=== PATIENT | female | born 1965 | race Caucasian/White ===

== ENCOUNTER → 2019-03-23 12:57 | Outpatient (BNVA) | payer OTHER, SELFPAY | PROVIDERS: Family Provider Family Medicine; PCP Family Medicine; Referring Provider Family Medicine; Visit Provider Internal Medicine Rheumatology | DX: M19.90 Unspecified osteoarthritis, unspecified site (principal); Z79.899 Other long term (current) drug therapy; Z11.1 Encounter for screening for respiratory tuberculosis; Z11.59 Encounter for screening for other viral diseases; M77.9 Enthesopathy, unspecified; M25.541 Pain in joints of right hand; M25.542 Pain in joints of left hand; L60.8 Other nail disorders | CPT/HCPCS: 36415; 86480; 86812; 99204 ==

== ENCOUNTER → 2019-03-23 14:17 | Outpatient (BNVA) | payer OTHER, SELFPAY | PROVIDERS: Family Provider Family Medicine; PCP Family Medicine; Referring Provider Family Medicine; Visit Provider Internal Medicine Rheumatology | DX: M19.90 Unspecified osteoarthritis, unspecified site (principal); Z79.899 Other long term (current) drug therapy; Z11.59 Encounter for screening for other viral diseases; M77.9 Enthesopathy, unspecified; M25.541 Pain in joints of right hand; M25.542 Pain in joints of left hand; L60.8 Other nail disorders; Z71.89 Other specified counseling | CPT/HCPCS: 85025 ==

== ENCOUNTER 2019-03-23 14:52 | Outpatient (CLI) | payer OTHER, SELFPAY ==
--- NOTE | 2019-03-23 15:11 | XR_ITS ---
WS: [id number] FOOT RIGHT TECHNIQUE: 3 views of the right foot CLINICAL INFORMATION: inflammatory arthritis COMPARISON: None. FINDINGS: No evidence of acute fracture or dislocation. Normal tarsal metatarsal alignment. Normal calcaneus. N ormal visualized talar dome. Plantar calcaneal spurring. Small Achilles enthesophyte. XR/XR foot RT min 3V* [id number] IMPRESSION: Plantar calcaneal spurring. Small Achilles enthesophyte.
--- NOTE | 2019-03-23 15:11 | XR_ITS ---
WS: [id number] HAND LEFT TECHNIQUE: 3 views of the left hand CLINICAL INFORMATION: inflammatory arthritis COMPARISON: None. FINDINGS: Normal metacarpals. Normal MCP joint. Metacarpal heads are normal in appearance. Mild narrowing third DIP joint. No evidence of acute fracture or dislocation. Radiocarpal joint: Normal. Carpal bones: Normal. XR/XR hand LT min 3V* [id number] IMPRESSION: Mild narrowing third DIP joint
--- NOTE | 2019-03-23 15:11 | XR_ITS ---
WS: [id number] PROCEDURE: XR chest 2V* [id number] CLINICAL INFORMATION: inflammatory arthritis COMPARISON: None. FINDINGS: Heart: Normal cardiac silhouette. Lungs: Lungs are clear. No consolidation or pleural fluid. Bones: Normal visualized bony structures. XR/XR chest 2V* [id number] IMPRESSION: Normal chest
--- NOTE | 2019-03-23 15:11 | XR_ITS ---
WS: [id number] FOOT LEFT TECHNIQUE: 3 views of the left foot CLINICAL INFORMATION: inflammatory arthritis COMPARISON: None. FINDINGS: No evidence of acute fracture or dislocation. Normal tarsal metatarsal alignment. Normal calcaneus. N ormal visualized talar dome. Plantar calcaneal spurring. Tiny amount of spurring at the Achilles inse rtion. XR/XR foot LT min 3V* [id number] IMPRESSION: Plantar calcaneal spurring. Remainder unremarkable.
--- NOTE | 2019-03-23 15:11 | XR_ITS ---
WS: [id number] KNEE LEFT TECHNIQUE: 3 views of the left knee CLINICAL INFORMATION: inflammatory arthritis COMPARISON: None. FINDINGS: Mild to moderate degenerative arthritis with medial and lateral joint space narrowing. Chondrocalcino sis. Hypertrophic changes along the joint line. No evidence of acute fracture dislocation. Hypertroph ic patella. Advanced degenerative narrowing at the patellofemoral articulation. XR/XR knee LT 3V* [id number] IMPRESSION: 1. Mild to moderate medial greater than lateral compartment narrowing with cho ndrocalcinosis. 2. Hypertrophic patella with advanced degenerative narrowing at the patellofem oral articulation.
--- NOTE | 2019-03-23 15:11 | XR_ITS ---
WS: [id number] PELVIS TECHNIQUE: 1 view(s) of the pelvis CLINICAL INFORMATION: inflammatory arthritis COMPARISON: None. FINDINGS: Visualized hips are normal in appearance. Mild degenerative arthritis both hips. Benign-appearing scl erosis right femoral neck and greater trochanter. Normal acetabulum. Mild spondylitic changes lower l umbar spine. Inferior and superior pubic rami are normal. Degenerative arthritis at the pubic symphys is. Normal iliopectineal line. Sacrum is normal in appearance. XR/XR pelvis 1-2V* [id number] IMPRESSION: 1. Mild spondylitic changes lower lumbar spine and mild degenerative arthritis at the pubic symphysis. 2. Mild degenerative arthritis both hips with joint space narrowing. Benign-ap pearing sclerosis right femoral neck and greater trochanter.
--- NOTE | 2019-03-23 15:11 | XR_ITS ---
WS: [id number] HAND RIGHT TECHNIQUE: 3 views of the right hand CLINICAL INFORMATION: inflammatory arthritis COMPARISON: None. FINDINGS: Normal metacarpals. Normal MCP joint. Metacarpal heads are normal in appearance. Mild third DIP joint narrowing. No evidence of acute fracture or dislocation. Radiocarpal joint: Normal. Carpal bones: Normal. XR/XR hand RT min 3V* [id number] IMPRESSION: Mild third DIP joint narrowing
== END 2019-03-23 14:53 | disposition home or self-care (01) ==
LOC: WPI 14:59
PROVIDERS: Family Provider Family Medicine; PCP Family Medicine; Visit Provider Internal Medicine Rheumatology
DX: M16.0 Bilateral primary osteoarthritis of hip (principal); M77.32 Calcaneal spur, left foot; M77.31 Calcaneal spur, right foot
CPT/HCPCS: 71046; 72170; 73130; 73562; 73630; 80076; 82306; 82565; 84439; 85651; 86140; 86704; 86803; 87340

== ENCOUNTER → 2019-04-04 12:55 | Outpatient (BNVA) | payer OTHER, SELFPAY | PROVIDERS: Family Provider Family Medicine; PCP Family Medicine; Visit Provider Internal Medicine Rheumatology | DX: M77.9 Enthesopathy, unspecified (principal); M47.819 Spondylosis without myelopathy or radiculopathy, site unspecified; Z15.89 Genetic susceptibility to other disease; M19.90 Unspecified osteoarthritis, unspecified site; Z79.1 Long term (current) use of non-steroidal anti-inflammatories (NSAID) | CPT/HCPCS: 99204 ==

== ENCOUNTER 2019-04-18 14:56 | Outpatient (CLI) | payer OTHER, SELFPAY ==
--- NOTE | 2019-04-18 15:09 | MR_ITS ---
WS: [id number] MRI sacrum, noncontrast. HISTORY: HLA-B27 positive. Evaluate for spondyloarthropathy Multiplanar, multisequence imaging is performed through the sacrum with attention to the SI joints. COMPARISON: Pelvis radiograph 03/23/2019. No erosions or increased T2 signal on either side of the SI joints on the STIR sequence. There is no fusion across the SI joints. No erosions or edema or widening. The visualized sacrum is normal. Sacra l foramina are normal. Visualized nerve roots in the thecal sac are normally distributed. No free flu id. MR/MR sacrum wo con* [id number] IMPRESSION: Normal MRI SI joints. No evidence for spondyloarthropathy. No erosions or edema .
== END 2019-04-18 14:57 | disposition home or self-care (01) ==
PROVIDERS: Family Provider Family Medicine; PCP Family Medicine; Visit Provider Internal Medicine Rheumatology
DX: M47.819 Spondylosis without myelopathy or radiculopathy, site unspecified (principal); Z15.89 Genetic susceptibility to other disease
CPT/HCPCS: 72148

== ENCOUNTER → 2019-04-26 11:52 | Outpatient (BNVA) | payer OTHER, SELFPAY | PROVIDERS: Family Provider Family Medicine; PCP Family Medicine; Visit Provider Internal Medicine Rheumatology | DX: M06.4 Inflammatory polyarthropathy (principal); R35.0 Frequency of micturition; Z79.899 Other long term (current) drug therapy; M54.5 Low back pain; G89.29 Other chronic pain; Z79.1 Long term (current) use of non-steroidal anti-inflammatories (NSAID) | CPT/HCPCS: 81001; 99214 ==

== ENCOUNTER → 2019-05-31 09:09 | Outpatient (BNVA) | payer OTHER, SELFPAY | PROVIDERS: Family Provider Family Medicine; PCP Family Medicine; Visit Provider Internal Medicine Rheumatology | DX: M06.4 Inflammatory polyarthropathy (principal); M19.90 Unspecified osteoarthritis, unspecified site; R35.0 Frequency of micturition; Z79.899 Other long term (current) drug therapy; M54.5 Low back pain; G89.29 Other chronic pain; Z79.1 Long term (current) use of non-steroidal anti-inflammatories (NSAID) | CPT/HCPCS: 36415; 80076; 82565; 85025; 85651; 86140 ==

== ENCOUNTER → 2019-08-09 09:53 | Outpatient (BNVA) | payer OTHER, SELFPAY | PROVIDERS: Family Provider Family Medicine; PCP Family Medicine; Visit Provider Internal Medicine Rheumatology | DX: M19.90 Unspecified osteoarthritis, unspecified site (principal); M25.541 Pain in joints of right hand; M25.542 Pain in joints of left hand; Z79.899 Other long term (current) drug therapy | CPT/HCPCS: 36415; 80076; 82565; 85025; 85651; 86140 ==

== ENCOUNTER → 2019-08-18 15:45 | Outpatient (BNVA) | payer OTHER, SELFPAY | PROVIDERS: Family Provider Family Medicine; PCP Family Medicine; Visit Provider Internal Medicine Rheumatology | DX: M19.90 Unspecified osteoarthritis, unspecified site (principal); Z15.89 Genetic susceptibility to other disease; M47.819 Spondylosis without myelopathy or radiculopathy, site unspecified; M79.7 Fibromyalgia; M77.9 Enthesopathy, unspecified; Z79.1 Long term (current) use of non-steroidal anti-inflammatories (NSAID); M70.51 Other bursitis of knee, right knee; Y93.9 Activity, unspecified | CPT/HCPCS: 99214 ==

== ENCOUNTER 2019-10-03 17:29 | Outpatient (CLI) | payer OTHER, SELFPAY ==
--- NOTE | 2019-10-03 17:56 | XR_ITS ---
WS: [id number] EXAM: LEFT KNEE: 3 VIEWS DATE OF EXAMINATION: 10/03/2019, 1801 hours COMPARISON: Left knee exam from 03/23/2019. HISTORY: Patient is 54 years old with knee injury. Complaining of pain. FINDINGS: Bone density is normal in appearance. Again demonstrated are findings of advanced tricompartmental os teoarthritis. No fracture or dislocation. Minimal joint fluid in the suprapatellar pouch. Extra artic ular soft tissues are unremarkable. XR/XR knee LT 3V* [id number] IMPRESSION: Advanced tricompartmental osteoarthritis in the left knee. No acute bony abnorm ality.
== END 2019-10-03 17:30 | disposition home or self-care (01) ==
LOC: RAD 17:31
PROVIDERS: PCP Family Medicine; Visit Provider Nurse Practitioner
DX: S86.912A Strain of unspecified muscle(s) and tendon(s) at lower leg level, left leg, initial encounter (principal); M25.562 Pain in left knee; Z79.899 Other long term (current) drug therapy; X58.XXXA Exposure to other specified factors, initial encounter
CPT/HCPCS: 36415; 73562; 80076; 82565; 85025; 85651; 86140

== ENCOUNTER → 2019-11-28 08:12 | Outpatient (BNVA) | payer OTHER, SELFPAY | PROVIDERS: PCP Family Medicine; Visit Provider Internal Medicine Rheumatology | DX: Z79.899 Other long term (current) drug therapy (principal) | CPT/HCPCS: 80076; 82565; 85025; 85651; 86140 ==

== ENCOUNTER → 2019-11-29 15:20 | Outpatient (BNVA) | payer OTHER, SELFPAY | PROVIDERS: PCP Family Medicine; Visit Provider Internal Medicine Rheumatology | DX: M54.89 Other dorsalgia (principal); M47.819 Spondylosis without myelopathy or radiculopathy, site unspecified; Z79.899 Other long term (current) drug therapy; Z15.89 Genetic susceptibility to other disease; M79.7 Fibromyalgia; M06.09 Rheumatoid arthritis without rheumatoid factor, multiple sites; Z79.1 Long term (current) use of non-steroidal anti-inflammatories (NSAID); L60.8 Other nail disorders | CPT/HCPCS: 99214 ==

== ENCOUNTER 2020-03-15 09:59 | Emergency (ER) | payer OTHER, SELFPAY ==
[2020-03-15 10:02] VITALS: BP 169/97; PULSE 79; RESP 17; TEMP 36.8; O2SAT 99; BMI 38.3
--- NOTE | 2020-03-15 10:16 | XR_ITS ---
WS: [id number] Exam: XR finger RT min 2V [id number] Date/Time of Exam: 03/15/2020 10:37 AM Reason For Exam: 5th There is nondisplaced fracture at the base of the distal phalanx of the fifth finger. No other fractu res are noted. Degenerative change of the IP joints. No soft tissue foreign bodies. XR/XR finger RT min 2V [id number] IMPRESSION: 1. Nondisplaced fracture at the base of distal phalanx of the fifth finger.
--- NOTE | 2020-03-15 10:16 | CT_ITS ---
WS: [id number] CT FACIAL BONES TECHNIQUE: Noncontrast facial bones with coronal and sagittal reformatted images. CLINICAL INFORMATION: fall COMPARISON: None. DLP: 724.[address] scans at [facility] use at least one of these dose optimization techniques: automat ed exposure control; mA and/or kV adjustment per patient size (includes targeted exams where dose is matched to clinical indication); or iterative reconstruction. FINDINGS: Small soft tissue laceration overlying the right lateral orbit. Paranasal sinuses and mastoid air estefania ls are well aerated. Normal nasal bones. Normal orbits. Normal zygoma and pterygoid plates. Normal ma ndible. No acute mandibular fracture or dislocation. Normal posterior nasopharynx. CT/CT facial bones wo con* [id number] IMPRESSION: No acute facial fractures.
--- NOTE | 2020-03-15 10:16 | W.ED.HEATRA ---
HPI - Head Injury General: Chief complaint: Head Injury Stated complaint: Fall/Head injury/hand pain Time Seen by Provider: 03/15/20 10:00 History of Present Illness: HPI Narrative: 54-year-old female presents emergency room with complaint after a fall. She stumbled and fell into a brick wall she caught herself with her hands but did not hit the right supraorbital ridge laterally she was stunned but never loss conscious she has not any nausea vomiting or diarrhea she is not on any coagulants. She also hurt her right fifth finger with an abrasion on the proximal interphalangeal joint dorsally. She is able to flex and extend she denies any other injuries denies any lightheadedness dizziness or chest pain precipitating the fall. MD Complaint: head injury and fall Onset (ago): minute(s) Mechanism of Injury: fall Place: home Loss of Consciousness: no Location of injury: frontal (Right supraorbital ridge laterally) Severity: mild Quality: aching Radiation: none Other Injuries: none Associated symptoms: Deny amnesia, confusion, nausea, neck pain, numbness, syncope, tingling, vertigo, visual changes, vomiting or weakness Review of Systems Const: Denies: fever(s), chills, body aches, change in appetite, fatigue or malaise ENMT: Denies: throat pain, ear or mastoid pain, nasal discharge or nasal congestion Card: Denies: syncope Resp: Denies: dyspnea, productive cough or non-productive cough GI: Denies: nausea or vomiting : Denies: flank pain, difficulty voiding, dysuria, urinary frequency or urinary urgency Musc: Denies: neck pain Skin/Breast: Denies: rash or pruritus Neuro: Denies: vertigo or confusion PFS ED PFSH: Medical History (Updated 03/15/20 @ 11:03 by Louis Harris DO) Atypical chest pain Benign essential HTN Dyslipidemia (high LDL; low HDL) Encounter for screening for other viral diseases Enthesitis Fibromyalgia High risk medication use HLA B27 positive Hyperlipidemia Hypertension Immunization counseling Inflammatory arthritis Inflammatory back pain Joint pain Nail pitting Peripheral spondyloarthritis SOB (shortness of breath) Vitamin D deficiency Surgical History H/O rhinoplasty History of hysterectomy History of tonsillectomy Family History Son Diabetes Other CAD (coronary artery disease) Cancer Hypertension Denies family history of Rheumatoid arthritis Lupus Stroke Social History Smoking and tobacco status: never smoked Alcohol intake: never History of recent travel: No Physical Exam Const: COMMON NORMALS: no acute distress GENERAL APPEARANCE: cooperative and comfortable ORIENTATION/CONSCIOUSNESS: Yes awake, Yes oriented to person, Yes oriented to place and Yes oriented to time HENMT: COMMON NORMALS: normocephalic, hearing grossly normal bilaterally, external ears normal, EAC's normal, TM's normal bilaterally, Normal nasal mucous membranes and turbinates present, moist oral mucous membranes and oropharynx normal HEAD & SCALP: normocephalic NOSE: Normal nasal mucous membranes and turbinates present EXTERNAL EAR: Yes external ears normal EXTERNAL AUDITORY CANAL: EAC's normal TYMPANIC MEMBRANE: TM's normal bilaterally OTHER: Superficial laceration with no gaping of the lateral aspect of the supraorbital ridge no active bleeding there is an abrasion at the midportion of the eyebrows very superficial. Eye: COMMON NORMALS: Equal, round and reactive pupils present, EOMs intact bilaterally, conjunctivae normal and no scleral icterus CONJUNCTIVA: Yes conjunctivae normal PUPIL: Yes Equal, round and reactive pupils present Neck/C-Spine: COMMON NORMALS: full ROM, no lymphadenopathy, supple and no JVD OTHER: No significant distracting injuries. Patient C-spine cleared at the bedside. No pain with palpation range of motion rotation and side bending flexion extension Resp: COMMON NORMALS: normal respiratory effort, No retractions, No use of accessory muscles and clear to auscultation bilaterally AUSCULTATION: clear to auscultation bilaterally Cardio: COMMON NORMALS: no JVD, regular rate, regular rhythm and No murmurs present (Cardio) RATE: regular rate RHYTHM: regular rhythm GI: COMMON NORMALS: Soft to palpation and No hepatosplenomegaly present AUSCULTATION: Yes normoactive bowel sounds PALPATION: Yes Soft to palpation, No Tenderness to palpation present (GI), No Guarding due to palpation present (GI) and Yes No hepatosplenomegaly present Extremity: COMMON NORMALS: normal to inspection, capillary refill normal, no clubbing, cyanosis or edema, no calf tenderness and no pedal edema Neuro: SENSORIUM/ORIENTATION: Yes oriented to person, Yes oriented to place and Yes oriented to time Skin: COMMON NORMALS: no rashes or lesions noted GENERAL SKIN EXAM: no rashes or lesions noted Course Vital Signs: Vital signs: Vital Signs Temperature 98.2 F 03/15/20 10:02 Pulse Rate 70 03/15/20 12:13 Respiratory Rate 18 03/15/20 12:13 Blood Pressure 156/119 03/15/20 12:13 Pulse Oximetry 99 03/15/20 12:13 MDM - Head Injury MDM Narrative: Medical decision making narrative: No facial bone fractures. There is a small fracture at the base of the fifth finger proximal phalanx splinted. Will follow up with Ortho. Left hand shows no acute fractures. There is a small abrasion above the right eye its not amenable to suturing there is also a large very superficial abrasion in the eyebrow just apply topical antibiotic to that follow-up as needed Discharge Plan Discharge Patient Disposition: Home Clinical Impression: Finger fracture, right Qualifiers: Encounter type: initial encounter Finger: little finger Fracture type: closed Phalanx: proximal Fracture alignment: nondisplaced Qualified Code(s): S62.646A - Nondisplaced fracture of proximal phalanx of right little finger, initial encounter for closed fracture Condition: Stable Prescriptions: No Action losartan-hydrochlorothiazide 50-12.5 mg tablet 1 tab PO DAILY RF: 0 naproxen sodium 550 mg tablet 550 mg PO BID Qty: 30 RF: 0 methotrexate sodium 2.5 mg tablet 15 mg PO .week Qty: 30 RF: 3 folic acid 1 mg tablet 1 mg PO DAILY Qty: 30 RF: 3 diclofenac sodium 1 % gel 2 gm TOPICAL QID Qty: 100 RF: 2 gabapentin 300 mg capsule See Rx Instructions PO .COMPLEX Qty: 90 RF: 2 carvedilol 6.25 mg tablet 6.25 mg PO BID Qty: 180 RF: 1 sulfasalazine 500 mg tablet 0.5 g PO BID Qty: 60 RF: 3 Cosentyx Pen (2 Pens) 150 mg/mL pen injector See Rx Instructions SUBCUT .COMPLEX Qty: 4 RF: 2 pantoprazole 40 mg tablet,delayed release (DR/EC) 40 mg PO QAM 30 Days Qty: 30 RF: 2 Discharge Orders: Discharge ED (Routine); Ordered 03/15/20 Ordered By: Louis Harris Referrals: Milo Peraza, [Primary Care Provider] - Discharge Diet: Usual diet Discharge Activity: Limit activity as instructed Activity Restrictions/Additional Instructions: Wear splint until released by orthopedics do not use the right hand. Apply topical antibiotic ointment to abrasions above the right eye twice daily Coding Level of Care Code ED Career Development Facilitator for Chg Fwd Exam Comprehensive
[2020-03-15] MEDS: tetanus-dipt-pertussis 0.5 mL SDV IM (11:27)
--- NOTE | 2020-03-15 11:28 | XR_ITS ---
WS: [id number] Exam: XR hand LT min 3V* [id number] Date/Time of Exam: 03/15/2020 11:28 AM Reason For Exam: pain after fall Comparison 03/23/2019. No acute fracture or dislocation. Degenerative changes of the IP joints. Normal soft tissues. XR/XR hand LT min 3V* [id number] IMPRESSION: 1. No fracture or dislocation.
[2020-03-15] MEDS: mupirocin oint 22 gm 1 APPLIC TOPICAL (11:32)
--- NOTE | 2020-03-15 12:03 | DCPLANNER ---
business relationship manager had message to schedule a follow up appointment for patient with ortho. business relationship manager called the ortho clinic, spoke with Joyce, gave clinic patients information. business relationship manager was told that patients information would be printed and reviewed. Clinic will call patient with appointment information.
[2020-03-15 12:13] VITALS: BP 156/119; PULSE 70; RESP 18; O2SAT 99
--- NOTE | 2020-03-16 07:31 | DCPLANNER ---
Patient has a follow up appointment scheduled for Thursday, March 16, 2020 at 9:[address] Song at ortho. Clinic will call patient with appointment information.
--- NOTE | 2020-03-20 08:37 | DCPLANNER ---
Patient had a follow up appointment scheduled for 03.16.20 with ortho - patient did attend appointment.
== END 2020-03-15 12:11 | disposition home or self-care (01) ==
LOC: ER 12:25
PROVIDERS: Emergency Provider Family Medicine; PCP Family Medicine
DX: S62.646A Nondisplaced fracture of proximal phalanx of right little finger, initial encounter for closed fracture (principal); W18.49XA Other slipping, tripping and stumbling without falling, initial encounter; I10 Essential (primary) hypertension; E78.5 Hyperlipidemia, unspecified; Z23 Encounter for immunization; S00.211A Abrasion of right eyelid and periocular area, initial encounter
CPT/HCPCS: 12345; 70486; 73130; 73140; 90471; 90715; 99281; 99283

== ENCOUNTER → 2020-05-21 08:56 | Outpatient (BNVA) | payer OTHER, SELFPAY | PROVIDERS: PCP Family Medicine; Visit Provider Internal Medicine Rheumatology | DX: Z79.899 Other long term (current) drug therapy (principal) | CPT/HCPCS: 36415; 80076; 82565; 85025; 86140 ==

== ENCOUNTER → 2020-06-07 15:34 | Outpatient (BNVA) | payer OTHER, SELFPAY | PROVIDERS: PCP Family Medicine; Visit Provider Internal Medicine Rheumatology | DX: M19.90 Unspecified osteoarthritis, unspecified site (principal); Z15.89 Genetic susceptibility to other disease; M25.561 Pain in right knee; M47.819 Spondylosis without myelopathy or radiculopathy, site unspecified; M79.7 Fibromyalgia | CPT/HCPCS: 99214 ==

== ENCOUNTER 2020-06-11 16:43 | Emergency (ER) | payer OTHER, SELFPAY ==
[2020-06-11 17:00] VITALS: BP 141/92; PULSE 80; RESP 18; TEMP 36.1; O2SAT 98; BMI 38.3
--- NOTE | 2020-06-11 17:29 | XRR_ITS ---
PROCEDURE INFORMATION: Exam: XR Right Knee Exam date and time: 06/11/2020 5:33 PM Age: 55 years old Clinical indication: Pain and injury or trauma; Other: Not specified; Blunt trauma; Knee; Injury date: 06/11/20; Patient HX: Pain behind right leg; Additional info: Pain, injury TECHNIQUE: Imaging protocol: XR Right knee. Views: 3 views. COMPARISON: No relevant prior studies available. FINDINGS: Bones/joints: Moderate degenerative arthritis right knee. Prominent patellofemoral joint hypertrophic change. No acute fracture. Soft tissues: Normal. XR/XR knee RT 3V* [id number] IMPRESSION: Moderate degenerative arthritis right knee.
[2020-06-11 18:50] VITALS: BP 139/100; PULSE 89; RESP 16; O2SAT 97
--- NOTE | 2020-06-11 18:55 | ED_ITS ---
HPI - Extremity Problem General: Chief complaint: Extremity Injury, Lower Stated complaint: Pain behind Right Leg Time Seen by Provider: 06/11/20 18:39 History of Present Illness: HPI Narrative: Patient felt a sudden pop behind her right knee earlier today when she is got out of the truck. She is able to bear weight now. Knee is painful. Complaint: joint pain Onset (ago): hour(s) Pain Consistency: constant Location: right and knee Severity scale (1-10): 4 Quality: aching Radiation: proximal Relieving factors: immobilization Exacerbating factors: range of motion and weight bearing Associated symptoms: Reports no associated symptoms; Deny chest pain, fever(s) or rash Review of Systems Const: Denies: fever(s), chills or body aches Eyes: Denies: change in vision or blurry vision ENMT: Denies: throat pain or nasal congestion Card: Denies: chest pain or dyspnea on exertion Resp: Denies: dyspnea, productive cough or non-productive cough GI: Denies: abdominal pain, nausea or vomiting Musc: Reports: extremity pain and joint pain (Right knee patient felt a pop behind the and now has hurt since) Skin/Breast: Denies: rash Neuro: Denies: headache(s) Psych: Denies: anxiety or depression Vladislav/Lymph: Denies: easy bruising PFSH ED PFSH: Medical History (Updated 06/11/20 @ 18:50 by GIL Nieves) Atypical chest pain Benign essential HTN Dyslipidemia (high LDL; low HDL) Encounter for screening for other viral diseases Enthesitis Fibromyalgia High risk medication use HLA B27 positive Hyperlipidemia Hypertension Immunization counseling Inflammatory arthritis Inflammatory back pain Joint pain Nail pitting Peripheral spondyloarthritis SOB (shortness of breath) Vitamin D deficiency Surgical History H/O rhinoplasty History of hysterectomy History of tonsillectomy Family History Son Diabetes Other CAD (coronary artery disease) Cancer Hypertension Denies family history of Rheumatoid arthritis Lupus Stroke Social History Smoking and tobacco status: never smoked Alcohol intake: never History of recent travel: No Physical Exam Const: COMMON NORMALS: no acute distress Extremity: RIGHT LOWER EXTREMITY: Yes knee joint (Pain with palpation lateral and medial aspect no swelling.) Right knee: Yes ROM (Slight pain with Joey's anterior test. Pain to distal hamstring) Psych: COMMON NORMALS: mental status grossly normal Course Vital Signs: Vital signs: Vital Signs Temperature 96.9 F L 06/11/20 17:00 Pulse Rate 89 06/11/20 18:50 Respiratory Rate 16 06/11/20 18:50 Blood Pressure 139/100 06/11/20 18:50 Pulse Oximetry 97 06/11/20 18:50 Discharge Plan Discharge Patient Disposition: Home Clinical Impression: Injury, knee Qualifiers: Encounter type: initial encounter Laterality: right Qualified Code(s): S89.91XA - Unspecified injury of right lower leg, initial encounter Condition: Stable Prescriptions: New tramadol 50 mg tablet 50 mg PO TID PRN (Reason: pain) Qty: 14 RF: 0 Voltaren 1 % gel 4 g topical QID Qty: 100 RF: 0 No Action losartan-hydrochlorothiazide 50-12.5 mg tablet 1 tab PO DAILY RF: 0 naproxen sodium 550 mg tablet 550 mg PO BID Qty: 30 RF: 0 methotrexate sodium 2.5 mg tablet 15 mg PO .week Qty: 30 RF: 3 folic acid 1 mg tablet 1 mg PO DAILY Qty: 30 RF: 3 diclofenac sodium 1 % gel 2 gm TOPICAL QID Qty: 100 RF: 2 sulfasalazine 500 mg tablet 0.5 g PO BID Qty: 60 RF: 3 gabapentin 300 mg capsule See Rx Instructions PO .COMPLEX Qty: 90 RF: 2 carvedilol 6.25 mg tablet 6.25 mg PO BID Qty: 180 RF: 1 pantoprazole 40 mg tablet,delayed release (DR/EC) 40 mg PO QAM 30 Days Qty: 30 RF: 2 Cosentyx Pen (2 Pens) 150 mg/mL pen injector 300 mg SUBCUT .[id number] Qty: 2 RF: 3 Discharge Orders: Discharge ED (Routine); Ordered 06/11/20 Ordered By: Sunday Puckett Referrals: Milo Peraza, [Primary Care Provider] - Discharge Diet: Usual diet Discharge Activity: Increase activity as tolerated and Use walker/crutches as instructed Patient Instructions: Knee Sprain (ED), Opioid Safety Activity Restrictions/Additional Instructions: Follow-up with medical provider as directed. Take medications as prescribed. Return to the ER or your medical provider if condition worsens. Please read and understand discharge instructions. If any questions ask please. Hospital will contact you with an appointment for orthopedics. Please apply ice to the knee. Find position of comfort. Use medication as directed. Coding Level of Care Code ED Music Artist for Alix Ramirez
[2020-06-11] MEDS: TRAMadol 50 mg Tablet PO (18:56)
--- NOTE | 2020-06-12 09:29 | DCPLANNER ---
manager medical had message to schedule a follow up appointment for patient with ortho for a knee injury. manager medical called the ortho clinic, spoke with Cassidy, gave clinic patients information. manager medical was told that patients information would be printed and reviewed. Clinic will call patient with appointment information.
--- NOTE | 2020-06-13 07:29 | DCPLANNER ---
Patient has a follow up appointment scheduled for Saturday, June 13, 2020 at 3:[address] Marina at [facility]. Clinic will call patient with appointment information.
--- NOTE | 2020-09-05 07:23 | DCPLANNER ---
Patient had a follow up appointment scheduled for 06.13.[address] Marina at [facility] - patient did attend appointment.
== END 2020-06-11 19:32 | disposition home or self-care (01) ==
PROVIDERS: Emergency Provider Nurse Practitioner Family; PCP Family Medicine
DX: S89.91XA Unspecified injury of right lower leg, initial encounter (principal); I10 Essential (primary) hypertension; E78.5 Hyperlipidemia, unspecified; X58.XXXA Exposure to other specified factors, initial encounter
CPT/HCPCS: 73562; 99283

== ENCOUNTER → 2020-07-02 15:26 | Outpatient (BNVA) | payer OTHER, SELFPAY | PROVIDERS: PCP Family Medicine; Visit Provider Internal Medicine Rheumatology | DX: M54.89 Other dorsalgia (principal) | CPT/HCPCS: 20610 ==

== ENCOUNTER 2020-07-25 08:29 | Outpatient (CLI) | payer OTHER, SELFPAY ==
--- NOTE | 2020-07-25 08:32 | MR_ITS ---
WS: [id number] MRI BRAIN WITHOUT CONTRAST HISTORY: Diplopia; physiological tremor, spondylolisthesis and weakness. COMPARISON: None available. TECHNIQUE: Diffusion imaging, multiplanar T1, T2 and FLAIR imaging obtained. No evidence for acute infarct or hemorrhage. Gomes-white matter differentiation is normal. No prior infarct. Single subcortical T2 focus in the RIGHT frontotemporal white matter. Additional T2 hyperintense focus towards the RIGHT frontal vertex. Very nonspecific white matter lesions. No prior infarct. No signal abnormalities otherwise. Ventricles and extra-axial spaces are normal. No inferior displacement of cerebellar tonsils. The sella turcica and pituitary gland are unremarkabl e. Posterior fossa is also unremarkable. Dural venous sinuses and [facility] demonstrate no abnormality on this unenhanced studies. Paranasal sinuses: Clear. Mastoid air cells: Normal. Calvarium and scalp: Intact. MR/MR head wo con* [id number] IMPRESSION: 1. No evidence for acute infarct or hemorrhage. 2. Very minimal T2 and FLAIR signal hyperintensities as described above. Not u nexpected for age.
== END 2020-07-25 08:30 | disposition home or self-care (01) ==
LOC: RADSHAW 08:30
PROVIDERS: PCP Family Medicine; Visit Provider Psychiatry & Neurology Neurology
DX: R25.1 Tremor, unspecified (principal); H53.2 Diplopia; M47.819 Spondylosis without myelopathy or radiculopathy, site unspecified; R53.1 Weakness
CPT/HCPCS: 70551

== ENCOUNTER 2020-08-21 08:33 | Outpatient (CLI) | payer OTHER, SELFPAY ==
--- NOTE | 2020-08-21 08:45 | MR_ITS ---
WS: [id number] MRI RIGHT KNEE HISTORY: M25.561 - Pain in right knee COMPARISON: 06/11/2020 Anterior cruciate ligament: Mild intrasubstance degeneration and increased signal within the ACL but no full-thickness tear. Posterior cruciate ligament: Mild increased signal and intrasubstance degeneration. Medial collateral ligament: Increased fluid signal along the joint side of the MCL. There is mild dis placement of the MCL from the tibia. Posterior lateral corner structures: Intact. Medial menisci: Abnormal signal throughout the posterior horn. Increased signal extends to the inferi or articular surface but there is increased signal throughout and greatest in the posterior third of the meniscus extending towards the meniscal root. Lateral meniscus: Fraying of the surfaces. No tear identified. Extensor mechanism: Distal quadriceps tendon and patellar tendons are intact. Fluid and soft tissue: Moderate to large suprapatellar joint effusion. Fluid extends into the interco ndylar notch and around the posterior condyles. . Tiny Wang's cyst. Osseous and articular structures: Patellofemoral compartment: Moderate narrowing of patellofemoral joint space with osteophytes along t he joint surfaces and complete loss of cartilage. Very slight lateral subluxation of the patella. Pat ellar retinaculum intact. Medial compartment: Moderate narrowing medial compartment with loss of cartilage which is diffuse. Os teochondral lesion along the weightbearing surface of the femoral condyle measures 6 mm. Marrow edema and subchondral changes along the tibial plateau. There are changes within the medial tibial plateau suspicious for a nondisplaced and nondepressed fractures. Lateral compartment: Mild narrowing of the lateral compartment with diffuse loss of cartilage. Osteophytes and a small amount of edema along the lateral tibial plateau. Large osteophytes are noted bilaterally along the posterior nonweightbearing surface of the femoral c ondyles. MR/MR knee RT wo con* [id number] IMPRESSION: 1. Marrow edema and changes in the medial, posterior tibial plateau suspicious for nondisplaced fractures from the recent injury. 2. Mild MCL sprain. 3. Complex tear posterior horn medial meniscus. 4. Moderate to large joint effusion. 5. 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 6. Large osteophytes from the posterior nonweightbearing surfaces of the femor al condyles.
== END 2020-08-21 08:34 | disposition home or self-care (01) ==
LOC: RADSHAW 08:36
PROVIDERS: PCP Family Medicine; Visit Provider Orthopaedic Surgery
DX: M25.561 Pain in right knee (principal); M25.78 Osteophyte, vertebrae; M94.261 Chondromalacia, right knee; M25.461 Effusion, right knee; S83.231A Complex tear of medial meniscus, current injury, right knee, initial encounter; S83.411A Sprain of medial collateral ligament of right knee, initial encounter; X58.XXXA Exposure to other specified factors, initial encounter; R60.0 Localized edema
CPT/HCPCS: 73721

== ENCOUNTER 2020-09-12 06:00 | Outpatient (RCR) | payer OTHER, SELFPAY | END 2020-09-15 23:59 | disposition home or self-care (01) | LOC: APT 06:00 | PROVIDERS: PCP Family Medicine; Referring Provider Orthopaedic Surgery; Visit Provider Orthopaedic Surgery | DX: M17.11 Unilateral primary osteoarthritis, right knee (principal) | CPT/HCPCS: 97110; 97162 ==

== ENCOUNTER → 2020-09-20 09:23 | Outpatient (BNVA) | payer OTHER, SELFPAY | PROVIDERS: PCP Family Medicine; Visit Provider Internal Medicine Rheumatology | DX: M17.11 Unilateral primary osteoarthritis, right knee (principal); Z79.899 Other long term (current) drug therapy | CPT/HCPCS: 80076; 82565; 85025; 86140 ==

== ENCOUNTER → 2020-09-24 12:50 | Outpatient (BNVA) | payer OTHER, SELFPAY | PROVIDERS: PCP Family Medicine; Visit Provider Internal Medicine Rheumatology | DX: M19.90 Unspecified osteoarthritis, unspecified site (principal); M47.819 Spondylosis without myelopathy or radiculopathy, site unspecified; Z15.89 Genetic susceptibility to other disease; M45.9 Ankylosing spondylitis of unspecified sites in spine; M77.8 Other enthesopathies, not elsewhere classified; M79.7 Fibromyalgia; Z79.1 Long term (current) use of non-steroidal anti-inflammatories (NSAID) | CPT/HCPCS: 99214 ==

== ENCOUNTER 2020-11-19 12:30 | Outpatient (CLI) | payer OTHER, SELFPAY | END 2020-11-19 12:31 | disposition home or self-care (01) | LOC: SLEEP 11-21 07:55 | PROVIDERS: PCP Family Medicine; Visit Provider Physician Assistant Medical | DX: G47.33 Obstructive sleep apnea (adult) (pediatric) (principal) | CPT/HCPCS: G0399 ==

== ENCOUNTER 2021-01-08 06:00 | Outpatient (RCR) | payer OTHER, SELFPAY | END 2021-01-15 23:59 | disposition home or self-care (01) | LOC: TPT 06:00 | PROVIDERS: Referring Provider Orthopaedic Surgery; Visit Provider Orthopaedic Surgery | DX: M17.11 Unilateral primary osteoarthritis, right knee (principal) | CPT/HCPCS: 97032; 97110; 97162; 97530 ==

== ENCOUNTER 2021-01-16 06:00 | Outpatient (RCR) | payer OTHER, SELFPAY | END 2021-02-15 23:59 | disposition home or self-care (01) | LOC: TPT 06:00 | PROVIDERS: Referring Provider Orthopaedic Surgery; Visit Provider Orthopaedic Surgery | DX: M17.11 Unilateral primary osteoarthritis, right knee (principal) | CPT/HCPCS: 97032; 97110; 97140; 97164; 97530 ==

== ENCOUNTER 2021-02-16 06:00 | Outpatient (RCR) | payer OTHER, SELFPAY | END 2021-02-26 23:59 | disposition home or self-care (01) | LOC: TPT 06:00 | PROVIDERS: Referring Provider Orthopaedic Surgery; Visit Provider Orthopaedic Surgery | DX: M17.11 Unilateral primary osteoarthritis, right knee (principal) | CPT/HCPCS: 97110 ==

== ENCOUNTER → 2021-03-06 09:59 | Outpatient (BNVA) | payer OTHER, SELFPAY | PROVIDERS: Visit Provider Internal Medicine Rheumatology | DX: M54.89 Other dorsalgia (principal); M45.9 Ankylosing spondylitis of unspecified sites in spine; M79.7 Fibromyalgia; M47.819 Spondylosis without myelopathy or radiculopathy, site unspecified; Z96.659 Presence of unspecified artificial knee joint; Z79.899 Other long term (current) drug therapy | CPT/HCPCS: 80076; 82565; 85025; 86140 ==

== ENCOUNTER → 2021-07-08 10:46 | Outpatient (BNVA) | payer OTHER, SELFPAY | PROVIDERS: PCP Family Medicine; Visit Provider Internal Medicine Rheumatology | DX: M45.9 Ankylosing spondylitis of unspecified sites in spine (principal); M79.7 Fibromyalgia; M47.819 Spondylosis without myelopathy or radiculopathy, site unspecified; Z79.899 Other long term (current) drug therapy; Z96.659 Presence of unspecified artificial knee joint | CPT/HCPCS: 80076; 82565; 85025; 86140 ==

== ENCOUNTER → 2021-11-11 08:18 | Outpatient (BNVA) | payer OTHER, SELFPAY | PROVIDERS: PCP Family Medicine; Visit Provider Internal Medicine Rheumatology | DX: M45.9 Ankylosing spondylitis of unspecified sites in spine (principal); Z79.899 Other long term (current) drug therapy | CPT/HCPCS: 80076; 82565; 85025; 86140 ==

== ENCOUNTER 2021-11-28 09:36 | Outpatient (CLI) | payer OTHER, SELFPAY ==
--- NOTE | 2021-11-28 09:48 | MM_ITS ---
WS: [id number] BILATERAL SCREENING DIGITAL TOMOSYNTHESIS MAMMOGRAM WITH CAD HISTORY: SCREEN COMPARISON: 09/19/2014 and 10/24/2011 Bilateral CC and MLO views with tomosynthesis and synthetic mammography submitted. Computer aided det ection analyzed. Breast composition: There are scattered areas of fibroglandular density. No suspicious masses, microc alcifications or architectural distortion. Benign calcifications in each breast. MM/[place] [id number] IMPRESSION: BI-RADS: 2-Benign FOLLOW UP: 1 Year Follow-up
== END 2021-11-28 09:37 | disposition home or self-care (01) ==
LOC: RAD 09:37
PROVIDERS: PCP Family Medicine; Visit Provider Family Medicine
DX: Z12.31 Encounter for screening mammogram for malignant neoplasm of breast (principal)
CPT/HCPCS: 77063; 77067

== ENCOUNTER 2022-01-16 06:00 | Outpatient (RCR) | payer OTHER, SELFPAY | END 2022-02-15 23:59 | disposition home or self-care (01) | LOC: APT 06:00 | PROVIDERS: PCP Family Medicine; Visit Provider Orthopaedic Surgery | DX: M17.12 Unilateral primary osteoarthritis, left knee (principal) | CPT/HCPCS: 97110; 97140; 97162; 97530 ==

== ENCOUNTER 2022-02-16 06:00 | Outpatient (RCR) | payer OTHER, SELFPAY | END 2022-03-18 23:59 | disposition home or self-care (01) | LOC: APT 06:00 | PROVIDERS: PCP Family Medicine; Visit Provider Orthopaedic Surgery | DX: M17.12 Unilateral primary osteoarthritis, left knee (principal); Z96.652 Presence of left artificial knee joint | CPT/HCPCS: 97110; 97116; 97140 ==

== ENCOUNTER → 2022-03-03 09:05 | Outpatient (BNVA) | payer OTHER, SELFPAY | PROVIDERS: PCP Family Medicine; Referring Provider Internal Medicine; Visit Provider Internal Medicine | DX: M79.7 Fibromyalgia (principal) | CPT/HCPCS: 80053; 85025; 85651; 86140 ==

== ENCOUNTER → 2022-03-16 11:38 | Outpatient (BNVA) | payer OTHER, SELFPAY | PROVIDERS: PCP Family Medicine; Visit Provider Emergency Medicine | DX: R39.9 Unspecified symptoms and signs involving the genitourinary system (principal); N12 Tubulo-interstitial nephritis, not specified as acute or chronic | CPT/HCPCS: 81000; 87086 ==

== ENCOUNTER 2022-03-19 06:00 | Outpatient (RCR) | payer OTHER, SELFPAY | END 2022-04-15 23:59 | disposition home or self-care (01) | LOC: APT 06:00 | PROVIDERS: PCP Family Medicine; Visit Provider Orthopaedic Surgery | DX: M17.12 Unilateral primary osteoarthritis, left knee (principal) | CPT/HCPCS: 97110; 97140 ==

== ENCOUNTER → 2022-04-02 13:51 | Outpatient (BNVA) | payer OTHER, SELFPAY | PROVIDERS: PCP Family Medicine; Visit Provider Nurse Practitioner Family | DX: N39.0 Urinary tract infection, site not specified (principal); R30.0 Dysuria | CPT/HCPCS: 81000 ==

== ENCOUNTER → 2022-05-26 08:24 | Outpatient (BNVA) | payer OTHER, SELFPAY | PROVIDERS: PCP Family Medicine; Referring Provider Internal Medicine Rheumatology; Visit Provider Internal Medicine | DX: M19.90 Unspecified osteoarthritis, unspecified site (principal); M25.542 Pain in joints of left hand; M25.541 Pain in joints of right hand | CPT/HCPCS: 80053; 85025; 85652; 86140 ==

== ENCOUNTER → 2022-05-29 12:21 | Outpatient (BNVA) | payer OTHER, SELFPAY | PROVIDERS: PCP Family Medicine; Visit Provider Internal Medicine | DX: M48.061 Spinal stenosis, lumbar region without neurogenic claudication (principal); L40.9 Psoriasis, unspecified | CPT/HCPCS: 72100; 72202 ==

== ENCOUNTER → 2022-07-19 16:26 | Outpatient (BNVA) | payer OTHER, SELFPAY | PROVIDERS: PCP Family Medicine; Visit Provider Emergency Medicine | DX: R39.9 Unspecified symptoms and signs involving the genitourinary system (principal); N10 Acute pyelonephritis | CPT/HCPCS: 81000; 87077; 87086; 87184 ==

== ENCOUNTER → 2022-07-31 11:32 | Outpatient (BNVA) | payer OTHER, SELFPAY | PROVIDERS: PCP Family Medicine | DX: Z01.818 Encounter for other preprocedural examination (principal); R82.90 Unspecified abnormal findings in urine | CPT/HCPCS: 81003; 87086 ==

== ENCOUNTER → 2022-09-26 08:51 | Outpatient (BNVA) | payer OTHER, SELFPAY | PROVIDERS: PCP Family Medicine; Visit Provider Internal Medicine Rheumatology | DX: M19.90 Unspecified osteoarthritis, unspecified site (principal); Z15.89 Genetic susceptibility to other disease; Z79.899 Other long term (current) drug therapy | CPT/HCPCS: 80053; 85025; 85651; 86140 ==

== ENCOUNTER → 2022-09-30 11:30 | Outpatient (BNVA) | payer OTHER, SELFPAY | PROVIDERS: PCP Family Medicine; Visit Provider Internal Medicine | DX: Z79.899 Other long term (current) drug therapy (principal); M17.11 Unilateral primary osteoarthritis, right knee; M46.90 Unspecified inflammatory spondylopathy, site unspecified; L40.9 Psoriasis, unspecified; M45.9 Ankylosing spondylitis of unspecified sites in spine | CPT/HCPCS: 70330; 72202; 99214 ==

== ENCOUNTER → 2022-12-31 08:17 | Outpatient (BNVA) | payer OTHER, SELFPAY | PROVIDERS: PCP Family Medicine; Visit Provider Nurse Practitioner Family | DX: R07.89 Other chest pain (principal); R07.9 Chest pain, unspecified; M17.11 Unilateral primary osteoarthritis, right knee; M19.90 Unspecified osteoarthritis, unspecified site; M25.541 Pain in joints of right hand; M25.542 Pain in joints of left hand; M46.90 Unspecified inflammatory spondylopathy, site unspecified; Z79.899 Other long term (current) drug therapy | CPT/HCPCS: 80053; 84484; 85025; 85651; 86140 ==

== ENCOUNTER 2023-01-14 08:16 | Observation (INO) | payer OTHER, SELFPAY ==
[2023-01-14] VITALS (18 sets, daily range): BP systolic 115–183; BP diastolic 83–114; PULSE 78–114; RESP 14–26; TEMP 36.8–37.1; O2SAT 93–100; BMI 39.1
--- NOTE | 2023-01-14 08:21 | ECG_ITS ---
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 Measurements Intervals [place] Rate: 111 P: 55 MT: 171 QRS: 44 QRSD: 76 T: 50 QT: 323 QTc: 441 Interpretive Statements SINUS TACHYCARDIA Otherwise normal Compared to ECG 08/30/2017 00:01:44 Sinus rhythm no longer present Electronically Signed On 01-15-2023 16:45:49 HOUSE BUILDER by Sandra Medina M.D. [id number]
--- NOTE | 2023-01-14 08:23 | XRR_ITS ---
PROCEDURE INFORMATION: Exam: XR Chest Exam date and time: 01/14/2023 8:47 AM Age: 57 years old Clinical indication: Cough and dyspnea; Patient HX: Weakness/tachycardia/cough. Pain in chest since this morning. ; Additional info: Dyspnea/cough TECHNIQUE: Imaging protocol: Radiologic exam of the chest. Views: 1 view. COMPARISON: CR XR chest 2V* [id number] 03/23/2019 3:30 PM FINDINGS: Lungs: Unremarkable. No consolidation. Pleural spaces: Unremarkable. No pleural effusion. No pneumothorax. Heart/Mediastinum: Unremarkable. No cardiomegaly. Bones/joints: Unremarkable. XR/XR chest 1V portable [id number] IMPRESSION: No acute findings.
--- NOTE | 2023-01-14 08:25 | ED_ITS ---
HPI - Arrhythmia/Palpitations 2 General: Chief Complaint: ER Hold Stated Complaint: Weakness / Tachycardia Time Seen by Provider: 01/14/23 08:22 Source: patient Mode of arrival: ambulatory History of Present Illness: 57-year-old female presents emergency ro om stating she woke up around 4 of the rapid heart rate. She was lightheaded and dizzy. She had chest pain the patient radiating into her neck and jaw. She was given adenosine for SVT in the field which did convert her on arrival here she is in a sinus tach on 120 she does states she feels better. She not take any new or different medications recently couple weeks ago she started semaglutide. She is on losartan hydrochlorothiazide she is not on any beta-blockers or calcium channel blockers no other recent medication changes. MD complaint: rapid heart beat and heart racing Onset (ago): hour(s) Associated symptoms: Deny anxiety, cough, diaphoresis, muscle cramps, nausea, paresthesias, pre-syncope, sense of impending doom, short of breath, syncope or vomiting Review of Systems 2 Const: Denies: fever(s), chills or diaphoresis Card: Denies: chest pain, syncope or pre-syncope Resp: Denies: dyspnea GI: Denies: abdominal pain, nausea or vomiting : Denies: dysuria, urinary frequency or urinary urgency Musc: Denies: neck pain, back pain or muscle cramps Skin/Breast: Denies: rash Psych: Denies: anxiety PFSH ED 2 PFSH: Medical History No pertinent past medical history neghx: dm,thyroid,dvt/pe PCP: Dr. Peraza Ureteral stone Axial spondyloarthritis Ankylosing spondylitis Fibromyalgia Peripheral spondyloarthritis Atypical chest pain Benign essential HTN Dyslipidemia (high LDL; low HDL) Hypertension Hyperlipidemia Vitamin D deficiency High risk medication use HLA B27 positive Inflammatory arthritis Enthesitis Surgical History H/O cystoscopy stent insertion and removal at [facility] H/O lithotripsy (~07/2022) resulted in sepsis and elongated hospitalization. Dr. Smyth-- [facility] Total knee replacement status 2020: Right knee Dr Denise 2021: Left knee History of tonsillectomy H/O rhinoplasty (~1995) History of hysterectomy JAMES with bladder repair with mesh. Required terminal operator catheter. Performed by Dr. Arias due to AUB and anemia and mixed incontinence. Family History Son Diabetes type one Mother Heart disease Hypertension Hyperlipidemia Stroke Father Heart disease Hypertension Hyperlipidemia Daughter Lupus Heart disease Other CAD (coronary artery disease) Denies family history of Rheumatoid arthritis Colon cancer Ovarian cancer Breast cancer Cancer Uterine cancer Thyroid disease Social History Smoking and tobacco/nicotine status: never used tobacco/nicotine Second hand smoke exposure: No Alcohol intake: never Substance/Drug Use: never Adopted: No Caregiver/support person: No Lives independently: Yes Household members: spouse Housing: House Marital status: service: No Current occupational status: employed Do you think of yourself as: Straight/Heterosexual Current gender identity: Female Physical Exam 2 Const: GENERAL APPEARANCE: cooperative and comfortable O RIENTATION/CONSCIOUSNESS: Yes awake, Yes oriented to person, Yes oriented to place and Yes oriented to time HENMT: COMMON NORMALS: normocephalic, atraumatic and hearing grossly normal bilaterally HEAD & SCALP: normocephalic and atraumatic Resp: COMMON NORMALS: normal respiratory effort, No retractions, No use of accessory muscles and clear to auscultation bilaterally AUSCULTATION: clear to auscultation bilaterally Cardio: COMMON NORMALS: regular rate, regular rhythm and No murmurs present (Cardio) RATE: regular rate RHYTHM: regular rhythm GI: COMMON NORMALS: Soft to palpation and No hepatosplenomegaly present A USCULTATION: Yes normoactive bowel sounds PALPATION: Yes Soft to palpation, No Tenderness to palpation present (GI), No Guarding due to palpation present (GI) and Yes No hepatosplenomegaly present Extremity: COMMON NORMALS: normal to inspection, capillary refill normal, no clubbing, cyanosis or edema, no calf tenderness and no pedal edema Neuro: SENSORIUM/ORIENTATION: Yes oriented to person, Yes oriented to place and Yes oriented to time Skin: COMMON NORMALS: no rashes or lesions noted GENERAL SKIN EXAM: no rashes or lesions noted Course 2 Vital Signs: Vital signs: Vital Signs Temperature 97.8 F 01/15/23 11:46 Pulse Rate 63 01/15/23 16:04 Respiratory Rate 21 H 01/15/23 11:46 Blood Pressure 138/85 01/15/23 11:46 Pulse Oximetry 98 01/15/23 11:46 Oxygen Delivery Me thod Room Air 01/15/23 11:46 MDM - Arrhythmia/Palpitations Medical Decision Making Laboratory test show positive delta of +50 EKG shows sinus tachycardia. Patient did have SVT in route 2 and was converted by adenosine in the field. Discussed with hospitalist will admit consult cardiology. Discussed with cardiology prior to admission and they concurred as well. Medical Records I reviewed the patient's medical records. Lab Data I reviewed the patient's lab results. 01/15/23 04:20 01/15/23 04:20 Radiology Impressions Chest X-Ray 01/14/23 08:23 IMPRESSION: No acute findings. Laboratory Results WBC 9.68 10^3/uL (3.29-11.43) 01/14/23 08:20 RBC 5.11 10^6/uL (3.85-5.65) 01/14/23 08:20 Hgb 13.90 g/dL (11.27-16.99) 01/14/23 08:20 Hct 43.1 % (36-47) 01/14/23 08:20 MCV 84.3 fl (85-98) L 01/14/23 08:20 MCH 27.2 pg (27-33) 01/14/23 08:20 MCHC 32.3 g/dL (30-55) 01/14/23 08:20 RDW 14.8 % (12.1-15.1) 01/14/23 08:20 Plt Count 225 10^3/cmm (157-399) 01/14/23 08:20 MPV 9.5 fL (7.4-10.4) 01/14/23 08:20 Neut % (Auto) 64.7 % 01/14/23 08:20 Lymph % (Auto) 25.0 % 01/14/23 08:20 [place] % (Auto) 8.4 % 01/14/23 08:20 Eos % (Auto) 1.1 % 01/14/23 08:20 Baso % (Auto) 0.5 % 01/14/23 08:20 Neut # (Auto) 6.26 10^3/uL (1.8-7.7) 01/14/23 08:20 Lymph # (Auto) 2.4 10^3/uL (0.8-4.8) 01/14/23 08:20 [place] # (Auto) 0.8 10^3/uL (0.2-0.9) 01/14/23 08:20 Eos # (Auto) 0.1 10^3/uL (0.0-0.8) 01/14/23 08:20 Baso # (Auto) 0.1 10^3/uL (0.0-0.1) 01/14/23 08:20 Nucleated RBC % (auto) 0 % 01/14/23 08:20 Nucleated RBCs # 0.0 /100WBC 01/14/23 08:20 Sodium 140 mmol/L (136-145) 01/14/23 08:20 Potassium 4.0 mmol/L (3.5-5.1) 01/14/23 08:20 Chloride 104 mmol/L (98-107) 01/14/23 08:20 Carbon Dioxide 24 mmol/L (22-29) 01/14/23 08:20 Anion Gap 16.0 (5-19) 01/14/23 08:20 BUN 10 mg/dL (6-20) 01/14/23 08:20 Creatinine 0.6 mg/dL (0.5-0.9) 01/14/23 08:20 GFR Calculation 103.0 mL/min (90-130) 01/14/23 08:20 Glucose 123 mg/dL (65-115) H 01/14/23 08:20 Calculated Osmolality 290 mOsm/kg (285-295) 01/14/23 08:20 Calcium 9.2 mg/dL (8.5-10.5) 01/14/23 08:20 Magnesium 1.8 mg/dL (1.7-2.3) 01/14/23 10:21 Total Bilirubin 0.4 mg/dL (0.15-1.2) 01/14/23 08:20 AST 33 U/L (0-32) H 01/14/23 08:20 ALT 46 U/L (0-33) H 01/14/23 08:20 Alkaline Phosphatase 118 U/L (35-105) H 01/14/23 08:20 Troponin T Baseline 14 ng/L (0-10) H 01/14/23 08:20 Troponin T 120 Minute 29.02 ng/L (0-10) H 01/14/23 10:21 Delta Troponin T 15.02 ABS# (0-10) H* 01/14/23 10:21 Troponin T Hi Sens 6Hr 29.81 ng/L (0-10) H 01/14/23 15:32 Troponin T Hi Sens 6Hr Delta 15.81 ng/L (0-12) H* 01/14/23 15:32 Total Protein 6.5 g/dL (6.6-8.7) L 01/14/23 08:20 Albumin 3.7 g/dL (3.5-5.2) 01/14/23 08:20 Globulin 2.8 g/dL (1.3-4.6) 01/14/23 08:20 TSH 2.07 uIU/mL (0.27-4.20) 01/14/23 08:20 All radiology interpretation(s) finalized by discharge Discharge Plan Discharge Patient Disposition: Admitted As Inpatient Admit Provider: Jame Marquez Clinical Impression: Atypical chest pain, SVT (supraventricular tachycardia), Elevated troponin I level Condition: Stable Discharge Diet: Cardiac Discharge Activity: Increase activity as tolerated Coding Level of Care Code ED Cook Helper Fruit for Alix Ramirez
[2023-01-14 08:37] LABS: Basophils # 0.1 10^3/uL (0.0-0.1); Basophils % 0.5 %; Eosinophils # 0.1 10^3/uL (0.0-0.8); Eosinophils % 1.1 %; Hematocrit 43.1 % (36-47); Lymphocytes # 2.4 10^3/uL (0.8-4.8); Mean Corpuscular HGB Conc 32.3 g/dL (30-55); Mean Corpuscular Hemoglobin 27.2 pg (27-33); Mean Corpuscular Volume 84.3 fl (85-98); Mean Platelet Volume 9.5 fL (7.4-10.4); Monocytes # 0.8 10^3/uL (0.2-0.9); Monocytes % 8.4 %; Neutrophils # 6.26 10^3/uL (1.8-7.7); Neutrophils % 64.7 %; Nucleated Red Blood Cells % 0 %; Platelet Count 225 10^3/cmm (157-399); Red Blood Count 5.11 10^6/uL (3.85-5.65); Red Cell Distribution Width 14.8 % (12.1-15.1); White Blood Count 9.68 10^3/uL (3.29-11.43)
[2023-01-14 09:07] LABS: Troponin(5th) Baseline 14 ng/L (0-10)
[2023-01-14 09:14] LABS: Alanine Aminotransferase 46 U/L (0-33); Albumin Level 3.7 g/dL (3.5-5.2); Alkaline Phosphatase 118 U/L (35-105); Blood Urea Nitrogen 10 mg/dL (6-20); Calcium 9.2 mg/dL (8.5-10.5); Carbon Dioxide 24 mmol/L (22-29); Chloride 104 mmol/L (98-107); Globulin 2.8 g/dL (1.3-4.6); Glucose 123 mg/dL (65-115); Osmolality Calculated 290 mOsm/kg (285-295); Sodium 140 mmol/L (136-145); Thyroid Stimulating Hormone 2.07 uIU/mL (0.27-4.20); Total Bilirubin 0.4 mg/dL (0.15-1.2); Total Protein 6.5 g/dL (6.6-8.7)
[2023-01-14 09:17] LABS: Aspartate Amino Transferase 33 U/L (0-32)
--- NOTE | 2023-01-14 10:28 | ECG_ITS ---
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 Measurements Intervals [place] Rate: 90 P: 53 ND: 176 QRS: 44 QRSD: 80 T: 62 QT: 345 QTc: 423 Interpretive Statements SINUS RHYTHM Normal EKG Compared to ECG 01/14/2023 08:21:14 Sinus tachycardia no longer present Electronically Signed On 01-15-2023 17:02:15 HALL COORDINATOR by Sandra Medina M.D. [id number]
[2023-01-14 10:46] LABS: Troponin 5 2HR 29.02 ng/L (0-10)
[2023-01-14 10:47] LABS: Troponin 5 2HR Delta 15.02 ABS# (0-10)
[2023-01-14] MEDS: enoxaparin 120 mg/0.8 mL Syringe 110 MG SUBCUT (11:05)
--- NOTE | 2023-01-14 12:03 | PM.HP ---
Documented by User: Nj Acostazach 01/14/23 14:44 Providers/Chief Complaint Admitting Physician: Daniel Marquez MD Primary Care Provider: Milo Peraza DO Chief Complaint: Weakness / Tachycardia History of Present Illness Patient is a 57-year-old female with a past medical history of hypertension, hyperlipidemia, peripheral spondyloarthritis, and chest pain who presents the emergency room with arrhythmia/palpitations. Patient will be admitted to hospital services for further medical management of SVT, elevated troponin, and chest pain. Patient reports that she woke up around 4 AM this morning with what felt like a rapid heart rate and severe headache. She describes her symptoms as feeling lightheaded and dizzy as she stood up and was ambulating to the restroom. Reports chest pain radiated into her neck and jaw and describes the pain a 8/10 on pain scale during this time. States that she has had approximately 4-5 small chest wall pain/episodes this previous week but shortly subsided within 30 seconds and didn't think anything of it. Patient states she tried to lie down to see if symptoms subsided but shortly did not subside and notified EMS at this time. EMS arrived and administered adenosine for a heart rate of 155 bpm. Patient converted into sinus tach at 120 bpm at this time and arrived to emergency room with sinus tach at 120 bpm. Patient describes chest pain as something sitting on her chest and also reported some shortness of breath with this as well. Reports only medication change was adding semaglutide to medication regimen approximately 2 weeks ago. She denies any chest pain or shortness of breath at this time post adenosine. Patient denies fever, chills, N/V, abdominal pain, swelling. Does report some left lower back/flank pain, 4/10 on pain scale. While in the emergency room, patient received Lovenox for anticoagulation. Labs as below. Radiology imaging below. Due to concerns for SVT, elevated troponin, chest pain, patient will be admitted for further supportive care measures. Review of Systems Narrative: Comprehensive 10 point ROS is negative except as noted in the corresponding HPI. Medications/Allergies Home Medications Medication Instructions Recorded Confirmed Last Taken Type gabapentin 100 mg capsule 200 mg PO QAM 07/10/21 01/14/23 01/13/23 History losartan 50 mg-hydrochlorothiazide 1 tab PO DAILY #90 tabs 06/27/22 01/14/23 01/13/23 Rx 12.5 mg tablet metformin 500 mg tablet 500 mg PO BID 09/03/22 01/14/23 01/13/23 History pantoprazole 40 mg tablet,delayed 40 mg PO QAM for gastric 09/15/22 01/14/23 01/13/23 Rx release protection 30 days #30 tabs sulfasalazine 500 mg tablet 1 g (2 x 500 mg) PO BID #120 tabs 09/15/22 01/14/23 01/13/23 Rx nitroglycerin 0.4 mg sublingual 0.4 mg sublingual Q5M PRN chest 12/29/22 01/14/23 Unknown Rx tablet pain #30 tabs adalimumab 40 mg/0.8 mL 40 mg (0.8 mL) SUBCUT Q14D #4 ea 01/01/23 01/14/23 12/29/22 Rx subcutaneous pen kit (Humira Pen) celecoxib 100 mg capsule (Celebrex) 100 mg PO BID #60 caps 01/01/23 01/14/23 01/13/23 Rx gabapentin 300 mg capsule 300 mg PO BEDTIME 01/14/23 01/14/23 01/13/23 History tnlcjwoh-bqm-dybq-FA-Ca carb-vit K 1 tab PO DAILY 01/14/23 01/14/23 01/13/23 History 18 mg iron-400 mcg-500 mg tablet (Women's Daily Formula) semaglutide (weight loss) 0.25 0.25 mg SUBCUT Q7D 01/14/23 01/14/23 01/10/23 History mg/0.5 mL subcutaneous pen injector Allergies Allergy/AdvReac Type Severity Reaction Status Date / Time duloxetine AdvReac Intermediate high BP Verified 01/14/23 08:25 leflunomide AdvReac Intermediate diarrhea Verified 01/14/23 08:25 PFSH Acute PFSH: Medical History No pertinent past medical history neghx: dm,thyroid,dvt/pe PCP: Dr. Peraza Ureteral stone Axial spondyloarthritis Ankylosing spondylitis Fibromyalgia Peripheral spondyloarthritis Atypical chest pain Benign essential HTN Dyslipidemia (high LDL; low HDL) Hypertension Hyperlipidemia Vitamin D deficiency High risk medication use HLA B27 positive Inflammatory arthritis Enthesitis Surgical History H/O cystoscopy stent insertion and removal at [facility] H/O lithotripsy (~07/2022) resulted in sepsis and elongated hospitalization. Dr. Smyth-- [facility] [place] Total knee replacement status 2020: Right knee Dr Denise 2021: Left knee History of tonsillectomy H/O rhinoplasty (~1995) History of hysterectomy JAMES with bladder repair with mesh. 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 Performed by Dr. Arias due to AUB and anemia and mixed incontinence. Family History Son Diabetes type one Mother Heart disease Hypertension Hyperlipidemia Stroke Father Heart disease Hypertension Hyperlipidemia Daughter Lupus Heart disease Other CAD (coronary artery disease) Denies family history of Rheumatoid arthritis Colon cancer Ovarian cancer Breast cancer Cancer Uterine cancer Thyroid disease Social History Smoking and tobacco/nicotine status: never used tobacco/nicotine Second hand smoke exposure: No Alcohol intake: never Substance/Drug Use: never Adopted: No Caregiver/support person: No Lives independently: Yes Household members: spouse Housing: House Marital status: service: No Current occupational status: employed Do you think of yourself as: Straight/Heterosexual Current gender identity: Female Vitals/I&O/Wt Last Vital Signs Temp 98.2 F 01/14/23 08:19 Pulse 89 01/14/23 10:52 Resp 18 01/14/23 10:52 BP 146/98 01/14/23 10:52 Pulse Ox 98 01/14/23 10:52 O2 Del Method Room Air 01/14/23 10:52 Weight last 48 hrs Weight 113.398 kg Physical Exam Narrative: General: Alert and oriented x 4, able to answer questions appropriately, healthy appearing. Neck: Supple Lymph: No lymphadenopathy present. Chest symmetrical to inspection. No chest tenderness on palpation Respiratory: Clear lungs to auscultation bilateral. Normal respiratory effort, not in respiratory distress. Cardiac: No murmur, no JVD, regular rate. Peripheral radial and dorsalis pedis pulses 2+. S1-S2. GI: Normal to inspection, obese, nontender on palpation. Active bowel sounds throughout. : Deferred Neuro able to answer questions appropriately. Alert and oriented x 4. Data 01/14/23 08:20 01/14/23 08:20 Other Labs: CBC unremarkable ALT 46, AST 33, baseline troponin 14, 2-hour Trop 29.02 TSH 2.07 CXR: My impression: Per my interpretation, no acute findings. Radiologist's impression: No acute findings EKG 1: My Interpretation: Sinus tachycardia. No ST elevation or axis deviation present. EKG computer-generated impression: Sinus tachycardia A&P Assessment and plan (1) Elevated troponin: Troponin noted to be 14 at baseline and 2-hour post is 29.0. Continue to trend for 6-hour delta Trop. Denies any chest pain at this time. Nitroglycerin SL as needed Cardiology consultation. Left Heart Cath in am 01/15 per cardiology. Echocardiogram during this hospitalization. (2) SVT (supraventricular tachycardia): Patient received adenosine via EMS. Resolved SVT. Remains stable this time at 89 bpm. Telemetry (3) Transaminitis: AST 33 and ALT 46 Slight elevation, patient denies any alcohol usage. (4) Diabetes: Hold metformin while in hospital. Insulin SS Accu-Cheks ACHS (5) Benign essential HTN: Continue home losartan. (6) Dyslipidemia (high LDL; low HDL): Plan Plan as stated above. Cardiology consult. Echocardiogram this hospitalization. Plan for left heart cath tomorrow 01/15/2023. DVT prophylaxis: Lovenox CODE STATUS: Full code, if patient is unable to make decisions for herself, Derick , will make decisions for her. Coding Level of Care Code 32333 Diagnoses Elevated troponin R79.89 SVT (supraventricular tachycardia) I47.10 Transaminitis R74.01 Diabetes E11.9 Benign essential HTN I10 Dyslipidemia (high LDL; low HDL) E78.5 Time Spent (min) 46 Documented by User: Jame Marquez MD 01/14/23 14:50 Providers/Chief Complaint Chief Complaint: Weakness / Tachycardia Review of Systems Card: Reports: chest pain and palpitations Resp: Denies: productive cough or non-productive cough GI: Denies: hematochezia or melena Medications/Allergies Home Medications Medication Instructions Recorded Confirmed Last Taken Type gabapentin 100 mg capsule 200 mg PO QAM 07/10/21 01/14/23 01/13/23 History losartan 50 mg-hydrochlorothiazide 1 tab PO DAILY #90 tabs 06/27/22 01/14/23 01/13/23 Rx 12.5 mg tablet metformin 500 mg tablet 500 mg PO BID 09/03/22 01/14/23 01/13/23 History pantoprazole 40 mg tablet,delayed 40 mg PO QAM for gastric 09/15/22 01/14/23 01/13/23 Rx release protection 30 days #30 tabs sulfasalazine 500 mg tablet 1 g (2 x 500 mg) PO BID #120 tabs 09/15/22 01/14/23 01/13/23 Rx nitroglycerin 0.4 mg sublingual 0.4 mg sublingual Q5M PRN chest 12/29/22 01/14/23 Unknown Rx tablet pain #30 tabs adalimumab 40 mg/0.8 mL 40 mg (0.8 mL) SUBCUT Q14D #4 ea 01/01/23 01/14/23 12/29/22 Rx subcutaneous pen kit (Humira Pen) celecoxib 100 mg capsule (Celebrex) 100 mg PO BID #60 caps 01/01/23 01/14/23 01/13/23 Rx gabapentin 300 mg capsule 300 mg PO BEDTIME 01/14/23 01/14/23 01/13/23 History nghhpimw-fmb-qetg-FA-Ca carb-vit K 1 tab PO DAILY 01/14/23 01/14/23 01/13/23 History 18 mg iron-400 mcg-500 mg tablet (Women's Daily Formula) semaglutide (weight loss) 0.25 0.25 mg SUBCUT Q7D 01/14/23 01/14/23 01/10/23 History mg/0.5 mL subcutaneous pen injector Allergies Allergy/AdvReac Type Severity Reaction Status Date / Time duloxetine AdvReac Intermediate high BP Verified 01/14/23 08:25 leflunomide AdvReac Intermediate diarrhea Verified 01/14/23 08:25 PFSH Acute PFSH: Medical History No pertinent past medical history neghx: dm,thyroid,dvt/pe PCP: Dr. Peraza Ureteral stone Axial spondyloarthritis Ankylosing spondylitis Fibromyalgia Peripheral spondyloarthritis Atypical chest pain Benign essential HTN Dyslipidemia (high LDL; low HDL) Hypertension Hyperlipidemia Vitamin D deficiency High risk medication use HLA B27 positive Inflammatory arthritis Enthesitis Surgical History H/O cystoscopy stent insertion and removal at [facility] H/O lithotripsy (~07/2022) resulted in sepsis and elongated hospitalization. Dr. Smyth-- [facility] [place] Total knee replacement status 2020: Right knee Dr Denise 2021: Left knee History of tonsillectomy H/O rhinoplasty (~1995) History of hysterectomy JAMES with bladder repair with mesh. 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 Performed by Dr. Arias due to AUB and anemia and mixed incontinence. Family History Son Diabetes type one Mother Heart disease Hypertension Hyperlipidemia Stroke Father Heart disease Hypertension Hyperlipidemia Daughter Lupus Heart disease Other CAD (coronary artery disease) Denies family history of Rheumatoid arthritis Colon cancer Ovarian cancer Breast cancer Cancer Uterine cancer Thyroid disease Social History Smoking and tobacco/nicotine status: never used tobacco/nicotine Second hand smoke exposure: No Alcohol intake: never Substance/Drug Use: never Adopted: No Caregiver/support person: No Lives independently: Yes Household members: spouse Housing: House Marital status: service: No Current occupational status: employed Do you think of yourself as: Straight/Heterosexual Current gender identity: Female Data 01/14/23 08:20 01/14/23 08:20 EKG 1: My Interpretation: Sinus tachycardia. No ST elevation or axis deviation present. Evaluation of strips, done in the field demonstrated a supraventricular rhythm, tachycardic, rate around 150, with flipped T waves noted inferiorly in 2 3 and aVF. By the third EKG done in the field, presumably after adenosine, these abnormalities in the inferior leads had resolved. A&P Assessment and plan (1) Elevated troponin: Troponin noted to be 14 at baseline and 2-hour post is 29.0. Continue to trend for 6-hour delta Trop. Denies any chest pain at this time. Nitroglycerin SL as needed Cardiology consultation. Left Heart Cath in am 01/15 per cardiology. Echocardiogram during this hospitalization. Concern this unmasked cardiac lesion, secondary to tachycardia in this patient with abnormal EKG findings during her supraventricular event (2) SVT (supraventricular tachycardia): Patient received adenosine via EMS. Resolved SVT. Remains stable this time at 89 bpm. Telemetry Add metoprolol Cardiology consultation (3) Transaminitis: AST 33 and ALT 46 Slight elevation, patient denies any alcohol usage. Likely secondary to fatty liver Previous hepatitis panel was negative Could consider outpatient hepatic imaging by her primary care provider. (4) Diabetes: (5) Benign essential HTN: Continue home losartan. Metoprolol will be added. (6) Dyslipidemia (high LDL; low HDL): Depending on results of cardiac cath, consideration for addition of statin. Will need to visit with patient if there was significant side effects before considering past history of significant muscle pain. Attestations Medical Necessity Statement*: Will need less than 2 midnight stay for evaluation and treatment of tachyarrhythmia with elevated troponin Diagnoses Elevated troponin R79.89 SVT (supraventricular tachycardia) I47.10 Transaminitis R74.01 Diabetes E11.9 Benign essential HTN I10 Dyslipidemia (high LDL; low HDL) E78.5 Time Spent (min) 46
[2023-01-14] MEDS: metoprolol tartrate 25 mg Tablet PO ×2 (13:41→21:28)
--- NOTE | 2023-01-14 14:26 | ECG_ITS ---
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 Measurements Intervals [place] Rate: 90 P: 56 LA: 179 QRS: 46 QRSD: 83 T: 62 QT: 357 QTc: 439 Interpretive Statements SINUS RHYTHM Normal EKG Compared to ECG 01/14/2023 10:28:40 No significant changes Electronically Signed On 01-15-2023 16:59:45 THERAPY MANAGER by Sandra Medina M.D. [id number]
--- NOTE | 2023-01-14 14:44 | USCV_ITS ---
Sol Shukla Age: 57 Gender: F : 1965 Exam Date: 01/14/2023 15:02 Ordering Phys: Jame Marquez MD Technologist: Anirudh Hairston [place] [facility]ication: increase trop BP: 151 / 94 HR: 86 Rhythm: Sinus Technical Quality: Adequate MEASUREMENTS (Male / Female) Normal Values 2D ECHO LV Diastolic Diameter PLAX 3.8 cm 4.2 - 5.9 / 3.9 - 5.3 cm LV Systolic Diameter PLAX 2.6 cm IVS Diastolic Thickness 1.3 cm 0.6 - 1.0 / 0.6 - 0.9 cm IVS Systolic Thickness 1.3 cm LVPW Diastolic Thickness 1.1 cm 0.6 - 1.0 / 0.6 - 0.9 cm LVPW Systolic Thickness 1.2 cm LVOT Diameter 2.0 cm LV Ejection Fraction 2D Teich 60.4 % LV Ejection Fraction MOD 2C 65.7 % LV Ejection Fraction 2C AL 68.2 % LA Diameter 3.3 cm M-MODE Aortic Annulus Diameter 3.2 cm LA Ao Ratio MM 1.2 MV E Point Septal Separation 1.0 cm DOPPLER AV Peak Velocity 131.0 cm/s LVOT Peak Velocity 94.0 cm/s AV Area Cont Eq vti 2.2 cm squared AV Area Cont Eq pk 2.4 cm squared MV E' Velocity 9.0 cm/s TR Peak Velocity 111.7 cm/s TR Peak Gradient 5.0 mmHg TV Peak E Velocity 77.0 cm/s Right Atrial Pressure 3.0 mmHg Pulmonary Artery Systolic Pressu 8.0 mmHg RV Acceleration Time 0.1 s FINDINGS Left Ventricle Normal left ventricular size, systolic function and wall thickness, with no regional wall motion abnormalities. Left ventricular ejection fraction is estimated at 65 %. Right Ventricle Normal right ventricular size and systolic function. Right Atrium Normal right atrial size. Left Atrium Normal left atrial size. Mitral Valve Structurally normal mitral valve. Trace mitral valve regurgitation. Aortic Valve Structurally normal trileaflet aortic valve. Tricuspid Valve Structurally normal tricuspid valve. Trace tricuspid valve regurgitation. Pulmonic Valve Structurally normal pulmonic valve. Trace pulmonary valve regurgitation. Pericardium No pericardial effusion. Aorta Normal size aortic root and proximal ascending aorta. IVC Normal IVC dimension with >50% respiratory change of the inferior vena cava. CONCLUSIONS Normal left ventricle systolic function. No LVH. Estimated LVEF normal at 65%. Normal chamber sizes. No significant valvular abnormality noted Normal right heart and pulmonary pressures. Sandra Medina MD (Electronically Signed) Final Date: 14 January 2023 15:54 S
[2023-01-14 15:12] LABS: Magnesium 1.8 mg/dL (1.7-2.3)
[2023-01-14] MEDS: aspirin 81 mg EC Tablet PO (15:29)
[2023-01-14 16:03] LABS: Troponin 5 6HR 29.81 ng/L (0-10)
[2023-01-14 16:10] LABS: Troponin 5 6HR Delta 15.81 ng/L (0-12)
--- NOTE | 2023-01-14 16:17 | PM.CONSULT ---
Providers/Reason For Consult Consulting Physician/Specialty*: Cardiology Reason for Consult*: SVT NSTEMI Requesting Physician: Dr. Marquez Attending Physician: Jame Marquez MD Primary Care Provider: Milo Peraza DO History of Present Illness History of Present Illness Sol Shukla is a 57 year old female with a history of hypertension and diabetes workup with sudden shortness of air and palpitations. Her pulse was a fast with heart rate up to 140s symptoms lasted well over 2 hours. During palpitation as she felt significant short of air as well as a chest tightness and pain in her throat and jaw radiating to the left arm. She was seen by the EMT and EKG showed SVT. There are ST depression changes on EKG during the SVT. The rhythm was converted to sinus rhythm with adenosine Subsequent EKG in the ER showed sinus rhythm with heart rate 90-100. Currently she is a asymptomatic and resting comfortably on the bed. Cardiac troponin enzymes are abnormally high. She noticed her blood pressure has not been well-controlled. The cardiac risk include hypertension diabetes mellitus. Additionally she is overweight. In the ER with a positive cardiac troponin enzyme she has been managed for ACS in addition to SVT. Review of Systems Narrative: Detailed 10 point systemic review unremarkable except for as mentioned above in the history of present illness. Medications/Allergies Home Medications Medication Instructions Recorded Confirmed Last Taken Type gabapentin 100 mg capsule 200 mg PO QAM 07/10/21 01/14/23 01/13/23 History losartan 50 mg-hydrochlorothiazide 1 tab PO DAILY #90 tabs 06/27/22 01/14/23 01/13/23 Rx 12.5 mg tablet metformin 500 mg tablet 500 mg PO BID 09/03/22 01/14/23 01/13/23 History pantoprazole 40 mg tablet,delayed 40 mg PO QAM for gastric 09/15/22 01/14/23 01/13/23 Rx release protection 30 days #30 tabs sulfasalazine 500 mg tablet 1 g (2 x 500 mg) PO BID #120 tabs 09/15/22 01/14/23 01/13/23 Rx nitroglycerin 0.4 mg sublingual 0.4 mg sublingual Q5M PRN chest 12/29/22 01/14/23 Unknown Rx tablet pain #30 tabs adalimumab 40 mg/0.8 mL 40 mg (0.8 mL) SUBCUT Q14D #4 ea 01/01/23 01/14/23 12/29/22 Rx subcutaneous pen kit (Humira Pen) celecoxib 100 mg capsule (Celebrex) 100 mg PO BID #60 caps 01/01/23 01/14/23 01/13/23 Rx gabapentin 300 mg capsule 300 mg PO BEDTIME 01/14/23 01/14/23 01/13/23 History xzasbocb-yaj-twtw-FA-Ca carb-vit K 1 tab PO DAILY 01/14/23 01/14/23 01/13/23 History 18 mg iron-400 mcg-500 mg tablet (Women's Daily Formula) semaglutide (weight loss) 0.25 0.25 mg SUBCUT Q7D 01/14/23 01/14/23 01/10/23 History mg/0.5 mL subcutaneous pen injector Allergies Allergy/AdvReac Type Severity Reaction Status Date / Time duloxetine AdvReac Intermediate high BP Verified 01/14/23 08:25 leflunomide AdvReac Intermediate diarrhea Verified 01/14/23 08:25 Current Medications Generic Name Dose Route Start Last Admin Trade Name Freq PRN Reason Stop Dose Admin Aspirin 81 mg 01/14/23 14:50 01/14/23 15:29 Aspirin 81 Mg Ec Tablet PO 81 mg DAILY BIRGIT Administration Metoprolol Tartrate 25 mg 01/14/23 13:25 01/14/23 13:41 Metoprolol Tartrate 25 Mg Tablet PO 25 mg BID@0900,2100 BIRGIT Administration PFSH Acute PFSH: Medical History No pertinent past medical history neghx: dm,thyroid,dvt/pe PCP: Dr. Peraza Ureteral stone Axial spondyloarthritis Ankylosing spondylitis Fibromyalgia Peripheral spondyloarthritis Atypical chest pain Benign essential HTN Dyslipidemia (high LDL; low HDL) Hypertension Hyperlipidemia Vitamin D deficiency High risk medication use HLA B27 positive Inflammatory arthritis Enthesitis Surgical History H/O cystoscopy stent insertion and removal at [facility] H/O lithotripsy (~07/2022) resulted in sepsis and elongated hospitalization. Dr. Smyth-- [facility] Total knee replacement status 2020: Right knee Dr Denise 2021: Left knee History of tonsillectomy H/O rhinoplasty (~1995) History of hysterectomy JAMES with bladder repair with mesh. Required predatory animal exterminator catheter. Performed by Dr. Arias due to AUB and anemia and mixed incontinence. Family History Son Diabetes type one Mother Heart disease Hypertension Hyperlipidemia Stroke Father Heart disease Hypertension Hyperlipidemia Daughter Lupus Heart disease Other CAD (coronary artery disease) Denies family history of Rheumatoid arthritis Colon cancer Ovarian cancer Breast cancer Cancer Uterine cancer Thyroid disease Social History Smoking and tobacco/nicotine status: never used tobacco/nicotine Second hand smoke exposure: No Alcohol intake: never Substance/Drug Use: never Adopted: No Caregiver/support person: No Lives independently: Yes Household members: spouse Housing: House Marital status: service: No Current occupational status: employed Do you think of yourself as: Straight/Heterosexual Current gender identity: Female Vitals/I&O/Wt Last Vital Signs Temp 98.2 F 01/14/23 08:19 Pulse 100 01/14/23 15:30 Resp 18 01/14/23 15:30 BP 151/94 01/14/23 15:00 Pulse Ox 99 01/14/23 15:30 O2 Del Method Room Air 01/14/23 15:30 Weight last 48 hrs Weight 250 lb Physical Exam Narrative: She is resting comfortably. No acute respiratory distress 2. Vitals revealed blood pressure 142/88 to, pulse 97/min regular. [facility] exam: Unremarkable. Eyes. Normal There is no JVD. Lungs auscultation auscultation reveals good air entry bilaterally. No added sounds. Cardiac examination normal first and second heart sounds. No added sounds. Abdomen soft nontender. Bowel sounds audible. Lower extremities. Trace bilateral lower extremity edema. Skin warm and dry. Neuro grossly intact. Data 01/14/23 08:20 01/14/23 08:20 A&P Assessment and plan (1) SVT (supraventricular tachycardia): (2) NSTEMI (non-ST elevated myocardial infarction): Plan 57-year-old female patient with a long history of hypertension diabetes mellitus presented with SVT with heart rate up to 140 -160s. She was asymptomatic with the anginal symptoms Cardiac troponin enzymes elevated, possibly related to tachycardia however the symptoms during were very typical of resting angina. Plan: Continue current treatment with beta-john and her home blood pressure medication. Also agree with the treatment of ACS we will a plan for cardiac cath tomorrow. Coding Level of Care Code Acute Code for [facility] Diagnoses SVT (supraventricular tachycardia) I47.10 NSTEMI (non-ST elevated myocardial infarction) I21.4 Time Spent (min) 20
[2023-01-14] MEDS: clopidogrel 300 mg Tablet PO (17:16)
[2023-01-14 18:52] LABS: Glucose Point of Care 121 mg/dL (70-110)
[2023-01-14] MEDS: gabapentin 300 mg Capsule PO (21:28)
[2023-01-14] MEDS: insulin lispro 100 unit/1 mL SUBCUT (21:50)
[2023-01-15] VITALS (7 sets, daily range): BP systolic 123–143; BP diastolic 68–85; PULSE 63–79; RESP 19–21; TEMP 36.6–36.9; O2SAT 97–98
[2023-01-15 04:45] LABS: Basophils % 0.4 %; Eosinophils # 0.1 10^3/uL (0.0-0.8); Eosinophils % 1.2 %; Hematocrit 39.4 % (36-47); Lymphocytes # 2.6 10^3/uL (0.8-4.8); Lymphocytes % 25.5 %; Mean Corpuscular Hemoglobin 26.9 pg (27-33); Mean Platelet Volume 9.6 fL (7.4-10.4); Monocytes % 9.8 %; Neutrophils # 6.34 10^3/uL (1.8-7.7); Neutrophils % 62.6 %; Nucleated Red Blood Cells % 0 %; Platelet Count 231 10^3/cmm (157-399); Red Blood Count 4.53 10^6/uL (3.85-5.65); Red Cell Distribution Width 15.2 % (12.1-15.1); White Blood Count 10.12 10^3/uL (3.29-11.43)
[2023-01-15 05:00] LABS: Alanine Aminotransferase 37 U/L (0-33); Albumin Level 3.5 g/dL (3.5-5.2); Alkaline Phosphatase 105 U/L (35-105); Anion Gap 13.1 (5-19); Aspartate Amino Transferase 28 U/L (0-32); Blood Urea Nitrogen 16 mg/dL (6-20); Carbon Dioxide 25 mmol/L (22-29); Chloride 105 mmol/L (98-107); Creatinine Clr Calc Pharmacy 115.2305; Globulin 2.5 g/dL (1.3-4.6); Glomerular Filtration Rate 86.2 mL/min (90-130); Glucose 135 mg/dL (65-115); Osmolality Calculated 291 mOsm/kg (285-295); Potassium 4.1 mmol/L (3.5-5.1); Sodium 139 mmol/L (136-145); Total Bilirubin 0.3 mg/dL (0.15-1.2)
[2023-01-15 05:08] LABS: Chol HDL Ratio 4.97 mg/dL (0.0-4.40); Cholesterol 159 mg/dL (0-200); HDL Cholesterol 32 mg/dL (60-100); LDL Cholesterol Calculated 64 mg/dL (50-129); Triglycerides 313 mg/dL (0-150)
[2023-01-15] MEDS: pantoprazole DR 40 mg Tablet PO (05:28)
[2023-01-15] MEDS: gabapentin 100 mg Capsule 200 MG PO (05:28)
--- NOTE | 2023-01-15 06:04 | PC.NURSE ---
Called and Spoke with regarding patient going for cardiac cath and asking what time and if wanted IV fluids or pre-op medications. said no to IV fluids, no pre-op meds, and said patient would potentially go around 8am.
--- NOTE | 2023-01-15 08:08 | XACV_ITS ---
Exam Room: [facility] Ht: 170 cm Wt: 113 kg BSA: 2.37 m2 Gender: Female : 1965 Any Known Allergies: Other Exam Priority: Routine Procedure(s): Procedure Description: Diagnostic procedure Procedure Description: Coronary Angiography Diagnostic Cath Status: Urgent Diagnostic Findings * Diagnostic coronary angiogram. * Left main: Normal. * Left anterior descending artery: Normal. * Left circumflex artery: Medium size vessel nondominant, normal. * Right coronary artery: Dominant vessel, normal. * Conclusion: Normal coronary arteries. Normal LVEF per Echo. Pressures Phase:Rest AO : 127 / 76 ( 103 ) @ 8:44:00 AM Clinical Evaluation EBL: 5mL-10mL Procedural Details Pre-Procedure Time Out. Identified patient by full name and date of as verbalized by the patient/guarantor. Does the consent match the physician's order: Yes. Accurate & Complete Informed Consent: Yes. Inpatient/Outpatient History & Physical on Chart: Yes. If H&P is completed, is and addenduem needed: No; If yes, is the addendum complete: N/A. Visualize and Verify Site with Patient/Guarantor: N/A. Relevant Radiology Images available: Yes. Pre-op teaching completed and patient verbalized understanding. The risks, benefits, and alternatives of sedation and/or procedure were discussed by physician. The patient agrees to continue. Procedure started. Physician arrived. [facility] Clinical Fraility Score: 3: Managing Well. [employer] Indications: ACS > 24 hours. Chest Pain Symptom Assessment: Atypical Angina. Correct patient, site and procedure confirmed by cath team. Current diagnosis: NSTEMI. PERRLA. Strong, equal hand union laborer bilaterally. Lungs clear x 5 lobes. IV Site on Arrival: 18 gauge in the right anticubital. IV Fluids: 0.9% NaCl at KVO. 0 mL infused prior to woods laborer. Pre Procedural Pulses: right radial was 3+. Oxygen started at 2liters/min via nasal canula. right groin was prepped with chloroprep then draped in the usual sterile fashion. right radial was prepped with chloroprep then draped in the usual sterile fashion. Baseline sample Acquired. HR: 73 BPM. Physician scrubbed in. Immediate Pre-Procedure Time Out. Correct Patient: Yes; Correct Procedure: Yes; Correct Site: Yes; Correct Patient Position: Yes; Correct Supplies: Yes; Dried Flammable Prep: Yes; Blood Products Available: N/A;. Lidocaine 1% infiltrated to the right radial. Arterial access obtained. Lidocaine 1% infiltrated to the right radial. A 6 american JL3.5 catheter in over wire. Multiple views taken of left coronary artery. Catheter removed over the exchange wire. A 6 american JR4 catheter in over wire. Multiple views taken of right coronary artery. Catheter removed over the exchange wire. Vital chart was stopped. A TR Band was successful obtaining hemostatsis at the Right Radial artery insertion site. Post Procedure: Pulses reassessed and unchanged. PERRLA. Strong, equal hand union laborer bilaterally. No VTE prophylaxis required. Medication's Wasted: Nitro = 49.8 mcg. Medication's Wasted: Heparin = 1000 units. Total IV fluids: 30 mL. Post-op diagnosis: Normal Coronaries. Complications: None. Estimated blood loss: 5mL-10mL. Responsiveness - Normal response to verbal stimuli; alert and oriented, PERRLA. Airway - Unaffected, no intervention required; spontaneous ventilation. Circulation: W/N/L, pulses unchanged. Nausea/Vomiting: No. Procedure completed. Patient transferred by wheelchair to 1st floor. Access Site Site: Right Radial artery Sheath Size: 6 Fr Hemostasis Method: TR Band Hemostasis Success: Successful Complication Findings: No complication related to the procedure. Procedure Medications Start: 8:15 AM Stop: 8:15 AM Medication: Fentanyl Amount: 25 mcg Route: I.V. Start: 8:27 AM Stop: 8:27 AM Medication: Fentanyl Amount: 25 mcg Route: I.V. Start: 8:34 AM Stop: 8:34 AM Medication: Versed Amount: 1 mg Route: I.V. Start: 8:37 AM Stop: 8:37 AM Medication: Fentanyl Amount: 25 mcg Route: I.V. Start: 8:39 AM Stop: 8:39 AM Medication: Versed Amount: 1 mg Route: I.V. Start: 8:42 AM Stop: 8:42 AM Medication: Nitrogylcerin Amount: 200 mcg Route: I.A. Start: 8:43 AM Stop: 8:43 AM Medication: Heparin Amount: 5000 units Route: I.V. Start: 8:47 AM Stop: 8:47 AM Medication: Fentanyl Amount: 25 mcg Route: I.V. I, the attending physician, have reviewed and verified all procedure medications. Yes, all medications given per verbal order History/Risk Factors Hypertension: Yes Dyslipidemia: Yes Peripheral Arterial Disease (PAD): No Myocardial Infarction (OK): No Obesity: Yes Renal Disease: No Tobacco Use: Never Prior Interventions PCI: No CABG: No Valve Surgery: No Report Signatures Finalized by Sandra Medina MD on 01/15/2023 10:14 AM
--- NOTE | 2023-01-15 08:56 | PM.PN ---
Subjective Subjective: This 57-year-old female who was admitted yesterday with SVT and associated significant anginal symptoms and elevated troponin. Overnight she was fine, no further arrhythmia. No further chest pain. For anginal symptoms and elevated troponin she underwent cardiac cath procedure today. Angiogram revealed no significant coronary disease. The likely cause of her elevated troponin was prolonged episode of SVT. Systemic review is unremarkable. Medications: Medication Review Details: I reviewed her medications and they are appropriate. I discontinued clopidogrel. She will continue her blood pressure medication and the addition of aspirin and metoprolol. Vitals/I&O/Wt Last Vital Signs Temp 98.4 F 01/15/23 07:43 Pulse 77 01/15/23 07:43 Resp 20 H 01/15/23 07:43 BP 135/85 01/15/23 07:43 Pulse Ox 97 01/15/23 07:43 O2 Del Method Room Air 01/15/23 07:43 01/14/23 01/15/23 01/15/23 22:59 06:59 14:59 Intake Total 240 / 240 0 / 240 Output Total 0 / 0 Balance 240 / 240 0 / 240 Weight last 48 hrs Weight 250 lb Weight 250 lb Physical Exam Narrative: Resting comfortably. Vitals blood pressure 128/82. Pulse 78/min regular There is no JVD HEENT exam unremarkable. Lungs clear to auscultation bilaterally. Cardiac exam: normal first and second heart sounds no added sounds. Abdomen soft nontender. Bowel sounds audible Lower extremity trace lower extremity edema. Data 01/15/23 04:20 01/15/23 04:20 A&P Assessment and plan (1) SVT (supraventricular tachycardia): (2) NSTEMI (non-ST elevated myocardial infarction): Plan 57-year-old female with SVT, typical anginal symptoms during SVT and elevated troponin. Clinically she is doing fine. No further arrhythmia. Cardiac catheter today showed no significant coronary disease. Normal LV functions on echocardiogram. Plan: Optimize blood pressure control. Addition of metoprolol and aspirin as appropriate. She is okay from cardiac point of view to be discharged home and follow-up in the cardiac clinic in 2 weeks. Attestations Medical Necessity Statement*: SVT NSTEMI Coding Level of Care Code Acute Code for [facility] Diagnoses SVT (supraventricular tachycardia) I47.10 NSTEMI (non-ST elevated myocardial infarction) I21.4
[2023-01-15] MEDS: losartan 50 mg Tablet PO (10:06)
[2023-01-15] MEDS: aspirin 81 mg EC Tablet PO (10:06)
[2023-01-15] MEDS: metoprolol tartrate 25 mg Tablet PO (10:06)
--- NOTE | 2023-01-15 10:13 | PC.CHAP ---
Pastoral Care Encounter/Spiritual Assessment Type of Contact [] Declined patient transition specialist visit [] Patient/Family/Request visit [] Outpatient visit [] Follow-up visit [] Physician referral [] Code/Alert [x] Routine visit [] Staff referral [] Actively dying [] Patient sleeping [] Family support [] [] Out of room [] Palliative care [] [x] Receiving care in room [] Pre-surgical visit [] Trauma [] Long length of stay [] ICU visit [] Other: Relational/Emotional Strength [x] Patient feels connected with others/family/visitors/staff [] Distress [] Loneliness/isolation [] Abandonment Spirituality of Patient [x] Person of Nirali [] Attends Gnosticism of their Nirali [x] Believes in Prayer [] Reads Bible or Rastafarian materials [] There are Spiritual issues to be addressed Cma Interventions [x] Prayer [x] Active listening [x] Non-anxious presence [x] Spiritual/emotional support [] Crisis/trauma care [x] Spiritual counseling [] Bereavement support [] Provided bereavement packet [] Provided Bible/devotional materials [] Provided toy/stuffed animal, coloring book to patient or family member [] Provided Communion [] Anointing/[place] [] Salvation [x] Completed spiritual assessment [] Other: Impact on Illness or Injury [] Angry [] Fearful [] Anxious [] Often cries [] Exhaustion [] Unable to work [] Unable to attend hinduism [] Unable to walk/stand [] Unable to read [] Unable to drive [] Unable to eat/drink [] Unable to sleep [] Unable to be with family [] Patient intubated [] Other: Summary had label sewer testing postive results had a heart attack family 3 well need rehab and ceck ups well go home Time spent with patient 10 mins
[2023-01-15] MEDS: acetaminophen 325 mg Tablet 650 MG PO (11:33)
[2023-01-15 11:54] LABS: Glucose Point of Care 134 mg/dL (70-110)
--- NOTE | 2023-01-15 13:13 | P.DS_ITS ---
Discharge Providers Date of Admission: 01/14/23 16:15 Date of Discharge: January 15, 2023 Attending Provider at Admission: Jame Marquez MD Attending Provider at Discharge: Jame Marquez MD Primary Care Provider: Milo Peraza DO Diagnoses at Discharge Discharge Diagnosis (1) SVT (supraventricular tachycardia): Status: Acute (2) NSTEMI (non-ST elevated myocardial infarction): Status: Acute Reason for Visit Reason for Visit: Weakness / Tachycardia Hospital Course Hospital Course Sol is a 57-year-old white female who presented to the hospital with discomfort in her chest as well as fast heart rate. She was found to be in SVT in the field, and received adenosine in the field. She cardioverted, and was brought to the emergency department. Troponins were elevated. EKG in the field showed concerns for with ST depression in the inferior leads. While in the hospital she received an ultrasound of her heart which was largely normal. Cardiology evaluated her, placed her on aspirin and metoprolol. She underwent an angiogram on 01/15, which showed no significant flow-limiting disease. She will be discharged home on metoprolol and aspirin, with follow-up arranged for cardiology as well as her primary care provider. She was given opportunity ask questions, and agreed with the plan. TSH, magnesium, potassium were all checked in the hospital and normal. Physical Exam Narrative: General exam no distress Neck is supple Cardiovascular regular rhythm Lungs clear Abdomen is soft Extremities no cyanosis clubbing or edema Angiogram site without significant bleeding, contusion. 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 echo complete* [id number] Routine Ultrasound 01/14/23 14:44 Completed Radiology Impressions Chest X-Ray 01/14/23 08:23 IMPRESSION: No acute findings. Laboratory Results WBC 10.12 10^3/uL (3.29-11.43) 01/15/23 04:20 RBC 4.53 10^6/uL (3.85-5.65) 01/15/23 04:20 Hgb 12.20 g/dL (11.27-16.99) 01/15/23 04:20 Hct 39.4 % (36-47) 01/15/23 04:20 MCV 87.0 fl (85-98) 01/15/23 04:20 MCH 26.9 pg (27-33) L 01/15/23 04:20 MCHC 31.0 g/dL (30-55) 01/15/23 04:20 RDW 15.2 % (12.1-15.1) H 01/15/23 04:20 Plt Count 231 10^3/cmm (157-399) 01/15/23 04:20 MPV 9.6 fL (7.4-10.4) 01/15/23 04:20 Neut % (Auto) 62.6 % 01/15/23 04:20 Lymph % (Auto) 25.5 % 01/15/23 04:20 [place] % (Auto) 9.8 % 01/15/23 04:20 Eos % (Auto) 1.2 % 01/15/23 04:20 Baso % (Auto) 0.4 % 01/15/23 04:20 Neut # (Auto) 6.34 10^3/uL (1.8-7.7) 01/15/23 04:20 Lymph # (Auto) 2.6 10^3/uL (0.8-4.8) 01/15/23 04:20 [place] # (Auto) 1.0 10^3/uL (0.2-0.9) H 01/15/23 04:20 Eos # (Auto) 0.1 10^3/uL (0.0-0.8) 01/15/23 04:20 Baso # (Auto) 0.0 10^3/uL (0.0-0.1) 01/15/23 04:20 Nucleated RBC % (auto) 0 % 01/15/23 04:20 Nucleated RBCs # 0.0 /100WBC 01/15/23 04:20 Sodium 139 mmol/L (136-145) 01/15/23 04:20 Potassium 4.1 mmol/L (3.5-5.1) 01/15/23 04:20 Chloride 105 mmol/L (98-107) 01/15/23 04:20 Carbon Dioxide 25 mmol/L (22-29) 01/15/23 04:20 Anion Gap 13.1 (5-19) 01/15/23 04:20 BUN 16 mg/dL (6-20) 01/15/23 04:20 Creatinine 0.7 mg/dL (0.5-0.9) 01/15/23 04:20 GFR Calculation 86.2 mL/min (90-130) L 01/15/23 04:20 Glucose 135 mg/dL (65-115) H 01/15/23 04:20 POC Glucose 134 mg/dL (70-110) H 01/15/23 11:50 Calculated Osmolality 291 mOsm/kg (285-295) 01/15/23 04:20 Calcium 9.0 mg/dL (8.5-10.5) 01/15/23 04:20 Magnesium 1.8 mg/dL (1.7-2.3) 01/14/23 10:21 Total Bilirubin 0.3 mg/dL (0.15-1.2) 01/15/23 04:20 AST 28 U/L (0-32) 01/15/23 04:20 ALT 37 U/L (0-33) H 01/15/23 04:20 Alkaline Phosphatase 105 U/L (35-105) 01/15/23 04:20 Troponin T Baseline 14 ng/L (0-10) H 01/14/23 08:20 Troponin T 120 Minute 29.02 ng/L (0-10) H 01/14/23 10:21 Delta Troponin T 15.02 ABS# (0-10) H* 01/14/23 10:21 Troponin T Hi Sens 6Hr 29.81 ng/L (0-10) H 01/14/23 15:32 Troponin T Hi Sens 6Hr Delta 15.81 ng/L (0-12) H* 01/14/23 15:32 Total Protein 6.0 g/dL (6.6-8.7) L 01/15/23 04:20 Albumin 3.5 g/dL (3.5-5.2) 01/15/23 04:20 Globulin 2.5 g/dL (1.3-4.6) 01/15/23 04:20 Triglycerides 313 mg/dL (0-150) H 01/15/23 04:20 Cholesterol 159 mg/dL (0-200) 01/15/23 04:20 LDL Cholesterol, Calc 64 mg/dL (50-129) 01/15/23 04:20 HDL Cholesterol 32 mg/dL (60-100) L 01/15/23 04:20 LDL/HDL Ratio 2.00 RATIO (0.00-3.22) 01/15/23 04:20 Cholesterol/HDL Ratio 4.97 mg/dL (0.0-4.40) H 01/15/23 04:20 TSH 2.07 uIU/mL (0.27-4.20) 01/14/23 08:20 Vitals Last Vital Signs Temp 97.8 F 01/15/23 11:46 Pulse 78 01/15/23 11:46 Resp 21 H 01/15/23 11:46 BP 138/85 01/15/23 11:46 Pulse Ox 98 01/15/23 11:46 O2 Del Method Room Air 01/15/23 11:46 Discharge Plan Discharge Patient Disposition: Home Condition: Stable Prescriptions: New aspirin 81 mg Tablet,Delayed Release (Dr/Ec) 81 mg PO DAILY Qty: 30 0RF metoprolol tartrate 25 mg Tablet 25 mg PO BID@0900,2100 Qty: 60 0RF Continued gabapentin 100 mg capsule 200 mg PO QAM nitroglycerin 0.4 mg tablet, sublingual 0.4 mg sublingual Q5M PRN (Reason: chest pain) Qty: 30 0RF Rx Instructions: do not exceed 3 doses per episode metformin 500 mg tablet 500 mg PO BID Humira Pen 40 mg/0.8 mL pen injector kit 40 mg SUBCUT Q14D Qty: 4 3RF losartan-hydrochlorothiazide 50-12.5 mg tablet 1 tab PO DAILY Qty: 90 3RF pantoprazole 40 mg tablet,delayed release (DR/EC) 40 mg PO QAM 30 Days Qty: 30 3RF sulfasalazine 500 mg tablet 1 g PO BID Qty: 120 3RF Rx Instructions: give with food (meal/snack) gabapentin 300 mg capsule 300 mg PO BEDTIME Women's Daily Formula 18 mg iron-400 mcg-500 mg Tablet 1 tab PO DAILY semaglutide (weight loss) 0.25 mg/0.5 mL Pen Injector 0.25 mg SUBCUT Q7D Rx Instructions: ON THURSDAY Discontinued celecoxib [Celebrex] 100 mg capsule 100 mg PO BID Qty: 60 1RF Discharge Orders: Discharge Order (Routine); Ordered 01/15/23 Ordered By: Jame Marquez Referrals: Baylee Serrato FNP [Nurse Practitioner] - 01/19/23 10:00 am Milo Peraza DO [Primary Care Provider] - 01/26/23 9:20 am Discharge Diet: Cardiac Discharge Activity: Increase activity as tolerated Patient Instructions: Metoprolol (By mouth) (Lopressor, Toprol XL), Aspirin (By mouth) (Susan Extra Strength, Susan Aspirin [facility],..., Supraventricular Tachycardia (DC), Opioid Safety, Post Angiogram Home Care Instructions, Post Heart Attack Stoplight Activity Restrictions/Additional Instructions: Take all medicine as prescribed Note that you have been started on metoprolol 25 mg twice daily Take aspirin 81 mg once daily Follow-up with your primary care provider 3 to 5 days, cardiology as scheduled Return for any concerns. Discharge Attestations Time Spent in Discharge Care*: greater than 30 min Quality Metrics Clinical Quality Measures [ No reported AMI, CVA or VTE this stay] Coding Level of Care Code 90183 Total time (in minutes) for Discharge: 38 Diagnoses SVT (supraventricular tachycardia) I47.10 NSTEMI (non-ST elevated myocardial infarction) I21.4
--- NOTE | 2023-01-15 16:02 | PC.NURSE ---
TR band removed per protocol. Dressing applied, no issues or concerns. Education provided.
[2023-01-16 08:31] LABS: Glucose Point of Care 111 mg/dL (70-110)
[2023-01-16 08:31] LABS: Glucose Point of Care 142 mg/dL (70-110)
== END 2023-01-15 16:05 | disposition home or self-care (01) ==
LOC: ER 11:13 → CSU 17:19
PROVIDERS: Internal Medicine Cardiovascular Disease; Admitting Provider Internal Medicine; Emergency Provider Family Medicine; PCP Family Medicine; Visit Provider Internal Medicine
DX: I47.10 Supraventricular tachycardia, unspecified (principal); I21.4 Non-ST elevation (NSTEMI) myocardial infarction; Z79.84 Long term (current) use of oral hypoglycemic drugs; I10 Essential (primary) hypertension; E78.5 Hyperlipidemia, unspecified; E66.9 Obesity, unspecified; Z68.39 Body mass index [BMI] 39.0-39.9, adult
CPT/HCPCS: 36415; 36416; 71045; 80053; 80061; 82962; 83735; 84443; 84484; 85025; 93005; 93306; 93454; 96372; 99152; 99153; 99285; C1769; C1887; C1894; G0378; J1644; J1650; J1815; J2250; J3010; J3490; J7030; Q9967

== ENCOUNTER 2023-01-19 10:50 | Emergency (ER) | payer OTHER, SELFPAY ==
[2023-01-19 10:56] VITALS: BP 149/77; PULSE 80; RESP 18; TEMP 36.8; O2SAT 95; BMI 39.1
--- NOTE | 2023-01-19 11:03 | XR_ITS ---
WS: [id number] PORTABLE CHEST HISTORY: cp COMPARISON: 01/14/2023 Lungs are clear and well expanded. No pleural effusion or pneumothorax. Cardiac size: Normal. Mediastinum/Aorta: Normal mediastinum. No osseous abnormality seen. IMPRESSION: Unremarkable portable chest.
--- NOTE | 2023-01-19 11:03 | ECG_ITS ---
[facility] Test Date: 2023-01-19 Pat Name: Sol Shukla Department: Room: Gender: Female Recovery Room Rn: : 1965 Requested By: Eamon Beckman Order Number: [id number] Tra MD: Alondra Weldon M.D. Measurements Intervals [place] Rate: 78 P: 34 RI: 182 QRS: 56 QRSD: 82 T: 75 QT: 377 QTc: 430 Interpretive Statements SINUS RHYTHM LOW QRS VOLTAGE IN PRECORDIAL LEADS [QRS DEFLECTION < 1.0 mV IN CHEST LEADS] Compared to ECG 01/14/2023 14:26:09 Low QRS voltage now present Electronically Signed On 01-19-2023 12:20:31 FLAP CURER by Alondra Weldon M.D. [email or web address]
--- NOTE | 2023-01-19 11:08 | CT_ITS ---
WS: [id number] CT HEAD NONCONTRAST HISTORY: numbness TECHNIQUE: Contiguous axial imaging performed through the brain in 2.5 mm imaging. Bone and soft tiss ue windows. Sagittal and coronal reformats reviewed. All CT scans at [facility] use at least one of these dose optimization techniques: automated exposure control; mA and/or kV adjustment per pa tient size (includes targeted exams where dose is matched to clinical indication); or iterative recon struction. DLP: 1089.73 mGy.cm COMPARISON: None available. No acute intracranial hemorrhage, midline shift or mass effect. No atrophy or prior infarcts or herniation. Ventricles: Normal size with no hydrocephalus. No intra displacement of the cerebellar tonsils. Paranasal sinuses: As visualized are clear. Mastoid air cells: Well pneumatized. Calvarium and scalp: Skull is intact with no soft tissue edema or swelling. IMPRESSION: Negative head CT.
--- NOTE | 2023-01-19 11:12 | ED_ITS ---
HPI - Chest Pain 2 General: Chief Complaint: Chest Pain Stated Complaint: numbness down right side of body Time Seen by Provider: 01/19/23 10:57 Source: patient Mode of arrival: ambulatory Limitations: no limitations History of Present Illness: 57-year-old female who had a cardiac cat h last week for chest pains cardiac cath was normal showed no blockages she states this morning at 4 AM she been having some chest pain along with some numbness down the left side of her arm and leg. She has had no weakness no slurred speech she denies any headaches her blood pressure she states has been up and down. No vomiting or diarrhea. Associated symptoms: Deny abdominal pain, dyspnea, fever(s), nausea or vomiting Review of Systems 2 Const: Denies: fever(s), chills, body aches or change in appetite Eyes: Denies: blurry vision or eye discomfort ENMT: Denies: throat pain or dental pain Card: Reports: chest pain Resp: Denies: dyspnea GI: Denies: abdominal pain, nausea, vomiting or diarrhea Musc: Denies: neck pain or back pain Skin/Breast: Denies: rash Neuro: Reports: numbness in extremities; Denies: headache(s) Psych: Denies: depression PFSH ED 2 PFSH: Medical History No pertinent past medical history neghx: dm,thyroid,dvt/pe PCP: Dr. Peraza Ureteral stone Axial spondyloarthritis Ankylosing spondylitis Fibromyalgia Peripheral spondyloarthritis Atypical chest pain Benign essential HTN Dyslipidemia (high LDL; low HDL) Hypertension Hyperlipidemia Vitamin D deficiency High risk medication use HLA B27 positive Inflammatory arthritis Enthesitis Surgical History H/O cystoscopy stent insertion and removal at [facility] H/O lithotripsy (~07/2022) resulted in sepsis and elongated hospitalization. Dr. Smyth-- [facility] Total knee replacement status 2020: Right knee Dr Denise 2021: Left knee History of tonsillectomy H/O rhinoplasty (~1995) History of hysterectomy JAMES with bladder repair with mesh. Required [facility] catheter. Performed by Dr. Arias due to AUB and anemia and mixed incontinence. Family History Son Diabetes type one Mother Heart disease Hypertension Hyperlipidemia Stroke Father Heart disease Hypertension Hyperlipidemia Daughter Lupus Heart disease Other CAD (coronary artery disease) Denies family history of Rheumatoid arthritis Colon cancer Ovarian cancer Breast cancer Cancer Uterine cancer Thyroid disease Social History Smoking and tobacco/nicotine status: never used tobacco/nicotine Second hand smoke exposure: No Alcohol intake: never Substance/Drug Use: never Adopted: No Caregiver/support person: No Lives independently: Yes Household members: spouse Housing: House Marital status: service: No Current occupational status: employed Do you think of yourself as: Straight/Heterosexual Current gender identity: Female Physical Exam 2 Const: COMMON NORMALS: no acute distress, patient oriented x3 and healthy appearing HENMT: COMMON NORMALS: normocephalic and atraumatic HEAD & SCALP: n ormocephalic and atraumatic Eye: COMMON NORMALS: Equal, round and reactive pupils present and EOMs intact bilaterally PUPIL: Yes Equal, round and reactive pupils present Neck/C-Spine: COMMON NORMALS: full ROM and supple Chest: COMMONS NORMALS: normal inspection of the chest and normal palpation of entire chest wall Resp: COMMON NORMALS: normal respiratory effort, No retractions, No use of accessory muscles and clear to auscultation bilaterally AUSCULTATION: clear to auscultation bilaterally Cardio: COMMON NORMALS: regular rate, regular rhythm and No murmurs present (Cardio) RATE: regular rate RHYTHM: regular rhythm GI: COMMON NORMALS: Normal to inspection, nondistended, normoactive bowel sounds present, Soft to palpation, non-tender and no masses PALPATION: Yes Soft to palpation Extremity: COMMON NORMALS: normal to inspection and full ROM Neuro: COMMON NORMALS: patient oriented x3, moves all extremities and no focal motor deficits CRANIAL NERVES: Yes CN normal except as noted MOTOR EXAM: 5 /5 motor strength present throughout Psych: COMMON NORMALS: mental status grossly normal, Normal thought process present and cooperative THOUGHT PROCESS: Normal thought process present Skin: COMMON NORMALS: no rashes or lesions noted and no wounds GENERAL SKIN EXAM: no rashes or lesions noted Course 2 Vital Signs: Vital signs: Vital Signs Temperature 98.2 F 01/19/23 10:56 Pulse Rate 97 01/19/23 12:22 Respiratory Rate 20 H 01/19/23 12:22 Blood Pressure 130/82 12/04/23 12:22 Pulse Oximetry 97 01/19/23 12:22 Oxygen Delivery Me thod Room Air 01/19/23 11:24 MDM - Chest Pain Medical Decision Making Patient presents here with paresthesias she is well-appearing here she has no focal deficits no signs of stroke head CT here is normal she is not having any actual chest pain here initial troponin and EKG here are normal she had a normal cath Thursday she is stable for discharge she is to follow-up with PCP and return if worsening. Medical Records I reviewed the patient's medical records. Lab Data I reviewed the patient's lab results. 01/19/23 11:20 01/19/23 11:20 Laboratory Results WBC 12.65 10^3/uL (3.29-11.43) H 01/19/23 11:20 RBC 5.43 10^6/uL (3.85-5.65) 01/19/23 11:20 Hgb 14.80 g/dL (11.27-16.99) 01/19/23 11:20 Hct 46.2 % (36-47) 01/19/23 11:20 MCV 85.1 fl (85-98) 01/19/23 11:20 MCH 27.3 pg (27-33) 01/19/23 11:20 MCHC 32.0 g/dL (30-55) 01/19/23 11:20 RDW 15.1 % (12.1-15.1) 01/19/23 11:20 Plt Count 289 10^3/cmm (157-399) 01/19/23 11:20 MPV 9.4 fL (7.4-10.4) 01/19/23 11:20 Neut % (Auto) 66.8 % 01/19/23 11:20 Lymph % (Auto) 23.4 % 01/19/23 11:20 [place] % (Auto) 7.3 % 01/19/23 11:20 Eos % (Auto) 1.3 % 01/19/23 11:20 Baso % (Auto) 0.4 % 01/19/23 11:20 Neut # (Auto) 8.45 10^3/uL (1.8-7.7) H 01/19/23 11:20 Lymph # (Auto) 3.0 10^3/uL (0.8-4.8) 01/19/23 11:20 [place] # (Auto) 0.9 10^3/uL (0.2-0.9) 01/19/23 11:20 Eos # (Auto) 0.2 10^3/uL (0.0-0.8) 01/19/23 11:20 Baso # (Auto) 0.1 10^3/uL (0.0-0.1) 01/19/23 11:20 Nucleated RBC % (auto) 0 % 01/19/23 11:20 Nucleated RBCs # 0.0 /100WBC 01/19/23 11:20 Sodium 136 mmol/L (136-145) 01/19/23 11:20 Potassium 4.2 mmol/L (3.5-5.1) 01/19/23 11:20 Chloride 102 mmol/L (98-107) 01/19/23 11:20 Carbon Dioxide 22 mmol/L (22-29) 01/19/23 11:20 Anion Gap 16.2 (5-19) 01/19/23 11:20 BUN 15 mg/dL (6-20) 01/19/23 11:20 Creatinine 0.8 mg/dL (0.5-0.9) 01/19/23 11:20 GFR Calculation 73.9 mL/min (90-130) L 01/19/23 11:20 Glucose 107 mg/dL (65-115) 01/19/23 11:20 Calculated Osmolality 283 mOsm/kg (285-295) L 01/19/23 11:20 Calcium 9.7 mg/dL (8.5-10.5) 01/19/23 11:20 Total Bilirubin 0.5 mg/dL (0.15-1.2) 01/19/23 11:20 AST 28 U/L (0-32) 01/19/23 11:20 ALT 36 U/L (0-33) H 01/19/23 11:20 Alkaline Phosphatase 124 U/L (35-105) H 01/19/23 11:20 Troponin T Baseline < 6 ng/L (0-10) 01/19/23 11:20 Total Protein 7.0 g/dL (6.6-8.7) 01/19/23 11:20 Albumin 4.4 g/dL (3.5-5.2) 01/19/23 11:20 Globulin 2.6 g/dL (1.3-4.6) 01/19/23 11:20 All radiology interpretation(s) finalized by discharge EKG Data EKG 1: I personally reviewed and interpreted this EKG as follows: EKG interpretation date: 01/19/23 EKG interpretation time: 11:06 Interpretation: nsr hr [address] or t wave abnormalities qrs 82 qtc 410 Discharge Plan Discharge Patient Disposition: Home Clinical Impression: Paresthesia Condition: Stable Prescriptions: No Action gabapentin 100 mg capsule 200 mg PO QAM nitroglycerin 0.4 mg tablet, sublingual 0.4 mg sublingual Q5M PRN (Reason: chest pain) Qty: 30 0RF Rx Instructions: do not exceed 3 doses per episode metformin 500 mg tablet 500 mg PO BID Humira Pen 40 mg/0.8 mL pen injector kit 40 mg SUBCUT Q14D Qty: 4 3RF losartan-hydrochlorothiazide 50-12.5 mg tablet 1 tab PO DAILY Qty: 90 3RF pantoprazole 40 mg tablet,delayed release (DR/EC) 40 mg PO QAM 30 Days Qty: 30 3RF sulfasalazine 500 mg tablet 1 g PO BID Qty: 120 3RF Rx Instructions: give with food (meal/snack) gabapentin 300 mg capsule 300 mg PO BEDTIME aspirin 81 mg Tablet,Delayed Release (Dr/Ec) 81 mg PO DAILY Qty: 30 0RF metoprolol tartrate 25 mg Tablet 25 mg PO BID@0900,2100 Qty: 60 0RF Discharge Orders: Discharge ED (Routine); Ordered 01/19/23 Ordered By: Eamon Beckman Referrals: Milo Peraza DO [Primary Care Provider] - Discharge Diet: Advance as tolerated Discharge Activity: Resume usual activity Patient Instructions: Paresthesia (ED) Coding Level of Care Code ED Refrigerator Repair Technician for Alix Ramirez
[2023-01-19 11:24] VITALS: BP 147/82; PULSE 82; RESP 17; O2SAT 96
--- NOTE | 2023-01-19 11:26 | PC.NURSE ---
Addendum entered by Twyla Garrett RN 01/19/23 11:33: Dr. Beckman notified, no new orders at this time Original Note: pt refused IV and pain medication at this time. pt states she is not having chest pain, just mild numbness .
[2023-01-19 11:37] LABS: Basophils # 0.1 10^3/uL (0.0-0.1); Basophils % 0.4 %; Eosinophils # 0.2 10^3/uL (0.0-0.8); Eosinophils % 1.3 %; Hematocrit 46.2 % (36-47); Lymphocytes % 23.4 %; Mean Corpuscular Hemoglobin 27.3 pg (27-33); Mean Corpuscular Volume 85.1 fl (85-98); Mean Platelet Volume 9.4 fL (7.4-10.4); Monocytes # 0.9 10^3/uL (0.2-0.9); Monocytes % 7.3 %; Neutrophils # 8.45 10^3/uL (1.8-7.7); Neutrophils % 66.8 %; Nucleated Red Blood Cells % 0 %; Platelet Count 289 10^3/cmm (157-399); Red Blood Count 5.43 10^6/uL (3.85-5.65); Red Cell Distribution Width 15.1 % (12.1-15.1); White Blood Count 12.65 10^3/uL (3.29-11.43)
[2023-01-19 11:53] LABS: Troponin(5th) Baseline < 6 ng/L (0-10)
[2023-01-19 12:02] LABS: Alanine Aminotransferase 36 U/L (0-33); Albumin Level 4.4 g/dL (3.5-5.2); Alkaline Phosphatase 124 U/L (35-105); Aspartate Amino Transferase 28 U/L (0-32); Blood Urea Nitrogen 15 mg/dL (6-20); Calcium 9.7 mg/dL (8.5-10.5); Carbon Dioxide 22 mmol/L (22-29); Chloride 102 mmol/L (98-107); Globulin 2.6 g/dL (1.3-4.6); Glomerular Filtration Rate 73.9 mL/min (90-130); Glucose 107 mg/dL (65-115); Osmolality Calculated 283 mOsm/kg (285-295); Sodium 136 mmol/L (136-145); Total Bilirubin 0.5 mg/dL (0.15-1.2)
[2023-01-19 12:04] LABS: Anion Gap 16.2 (5-19); Potassium 4.2 mmol/L (3.5-5.1)
[2023-01-19 12:10] VITALS: BP 130/82; PULSE 81; RESP 19; O2SAT 96
[2023-01-19 12:22] VITALS: BP 130/82; PULSE 97; RESP 20; O2SAT 97
== END 2023-01-19 12:23 | disposition home or self-care (01) ==
PROVIDERS: Emergency Provider Emergency Medicine; PCP Family Medicine
DX: R20.2 Paresthesia of skin (principal); Z79.84 Long term (current) use of oral hypoglycemic drugs; Z79.82 Long term (current) use of aspirin; I10 Essential (primary) hypertension; E78.5 Hyperlipidemia, unspecified
CPT/HCPCS: 36415; 70450; 71045; 80053; 84484; 85025; 93005; 99285

== ENCOUNTER → 2023-01-26 10:11 | Outpatient (BNVA) | payer OTHER, SELFPAY | PROVIDERS: PCP Family Medicine; Visit Provider Family Medicine | DX: N39.0 Urinary tract infection, site not specified (principal); R79.89 Other specified abnormal findings of blood chemistry; I47.10 Supraventricular tachycardia, unspecified; E11.9 Type 2 diabetes mellitus without complications | CPT/HCPCS: 81000 ==

== ENCOUNTER → 2023-02-26 10:01 | Outpatient (BNVA) | payer OTHER, SELFPAY | PROVIDERS: PCP Family Medicine; Visit Provider Internal Medicine | DX: E11.9 Type 2 diabetes mellitus without complications (principal); M46.90 Unspecified inflammatory spondylopathy, site unspecified; M17.11 Unilateral primary osteoarthritis, right knee; Z79.899 Other long term (current) drug therapy; M25.541 Pain in joints of right hand; M25.542 Pain in joints of left hand; M19.90 Unspecified osteoarthritis, unspecified site; I10 Essential (primary) hypertension | CPT/HCPCS: 80053; 82550; 82977; 83036; 83615; 83735; 84100; 84450; 84460; 85025 ==

== ENCOUNTER → 2023-06-01 09:27 | Outpatient (BNVA) | payer OTHER, SELFPAY | PROVIDERS: PCP Family Medicine; Visit Provider Internal Medicine Rheumatology | DX: M19.90 Unspecified osteoarthritis, unspecified site (principal); M25.541 Pain in joints of right hand; M25.542 Pain in joints of left hand; Z79.899 Other long term (current) drug therapy | CPT/HCPCS: 80076; 82565; 85025; 86140 ==

== ENCOUNTER 2023-07-10 12:17 | Outpatient (CLI) | payer OTHER, SELFPAY ==
[2023-07-14 11:55] LABS: COMPLEMENT COMPONENT C3C 142 mg/dL (83-193); COMPLEMENT COMPONENT C4C 33 mg/dL (15-57); THYROID PEROXIDASE ANTIBODIES 3 IU/mL (<9)
[2023-07-14 13:20] LABS: CENTROMERE B ANTIBODY <1.0 NEG AI (<1.0 NEG); JO-1 ANTIBODY <1.0 NEG AI (<1.0 NEG); RNP ANTIBODY <1.0 NEG AI (<1.0 NEG); SCL-70 ANTIBODY <1.0 NEG AI (<1.0 NEG); SJOGREN'S ANTIBODY (SS-A) <1.0 NEG AI (<1.0 NEG); SM ANTIBODY <1.0 NEG AI (<1.0 NEG); SS-B <1.0 NEG AI (<1.0 NEG)
[2023-07-14 14:29] LABS: COMPLEMENT, TOTAL (CH50) 55 U/mL (31-60)
[2023-07-14 15:25] LABS: ANA SCREEN, IFA NEGATIVE (NEGATIVE)
[2023-07-18 08:45] LABS: DNA AB (DS) CRITHIDIA,IFA NEGATIVE (NEGATIVE)
== END 2023-07-10 12:18 | disposition home or self-care (01) ==
LOC: LAB 12:19
PROVIDERS: PCP Family Medicine; Visit Provider Nurse Practitioner Family
DX: K11.7 Disturbances of salivary secretion (principal)
CPT/HCPCS: 86160; 86162; 86235; 86255; 86376

== ENCOUNTER → 2023-10-02 10:36 | Outpatient (BNVA) | payer BC, SELFPAY | PROVIDERS: PCP Family Medicine; Visit Provider Internal Medicine Rheumatology | DX: Z79.899 Other long term (current) drug therapy (principal); M19.90 Unspecified osteoarthritis, unspecified site | CPT/HCPCS: 80076; 82565; 83036; 85025; 85651; 86140 ==

== ENCOUNTER → 2024-01-28 10:50 | Outpatient (BNVA) | payer BC, SELFPAY | PROVIDERS: PCP Family Medicine; Visit Provider Internal Medicine Rheumatology | DX: Z79.899 Other long term (current) drug therapy (principal); M19.90 Unspecified osteoarthritis, unspecified site | CPT/HCPCS: 80076; 82565; 85025; 85651; 86140 ==

== ENCOUNTER → 2024-07-28 15:14 | Outpatient (BNVA) | payer BC, SELFPAY | PROVIDERS: PCP Family Medicine; Visit Provider Family Medicine | DX: E11.9 Type 2 diabetes mellitus without complications (principal); Z79.899 Other long term (current) drug therapy; R19.5 Other fecal abnormalities; M19.90 Unspecified osteoarthritis, unspecified site; M54.89 Other dorsalgia; M79.7 Fibromyalgia; R63.0 Anorexia; E03.9 Hypothyroidism, unspecified | CPT/HCPCS: 80061; 82306; 82607; 83036; 83721; 85025; 85651; 86140; 86160; 86162; 86235; 86255; 86376 ==

== ENCOUNTER → 2024-08-31 09:08 | Outpatient (BNVA) | payer BC, SELFPAY | PROVIDERS: PCP Family Medicine; Visit Provider Nurse Practitioner Women's Health | DX: M54.9 Dorsalgia, unspecified (principal) | CPT/HCPCS: 87086 ==

== ENCOUNTER → 2024-09-06 10:42 | Outpatient (BNVA) | payer BC, SELFPAY | PROVIDERS: PCP Family Medicine; Visit Provider Nurse Practitioner Women's Health | DX: R10.2 Pelvic and perineal pain (principal) | CPT/HCPCS: 76830 ==